=== PATIENT | male | born 1935 | race Caucasian/White ===

== ENCOUNTER 2017-10-20 20:16 | Inpatient (IN) | payer MEDICARE ==
[~2017-10-20] VITALS: Ht 175.3 cm; Wt 66.0 kg
--- NOTE | 2017-10-20 20:00 | NUR ---
RECEIVED PATIENT FROM [facility]IA [employer]. PATIENT IS A/O X 2. VERY PLEASANT WHEN APPROACHED. DENIES ANY PAIN OR DISCOMFORT UPON ARRIVAL. NO RESP. DISTRESS NOTED. VS WNL. ON RA SATING 98%. ORIENTED PATIENT TO ROOM AND CALL LIGHT. PATIENT MADE COMFORTABLE IN BED AND CALL LIGHT IN REACH. ALL NEEDS ATTENDED. BED ALARM ON. ALL NEEDS ATTENDED. WILL CONTINUE TO MONITOR.
--- NOTE | 2017-10-20 21:00 | NUR ---
NOTIFIED DR. CAMPOS THAT PATIENT WAS BROUGHT TO HOSPITAL WITHOUT ANY HOME MEDICATIONS OR HOSPITAL MEDICATIONS NOTED. DISCHARGE FROM [place], [facility]. PATIENT IS UNABLE TO VERBALIZE HOME MEDS. PATIENT IS ALERT AND ABLE TO ANSWER SOME QUESTIONS BUT VERY FORGETFUL.
--- NOTE | 2017-10-20 21:30 | NUR ---
CALLED GAYATHRI AVELAR TO REQUEST MEDICATION INFORMATION BE SENT OVER [facility]. WAITING.
[2017-10-20 21:37] VITALS: BP 107/70
--- NOTE | 2017-10-20 22:00 | NUR ---
RECEIVED HOME MEDICATION LIST/IN-PATIENT MEDS VIA FAX FROM [facility]. RECONCILED IN COMPUTER AND NOTIFIED DR. CAMPOS THAT MEDS ARE READY TO BE RECONCILED. INSERTER OPERATOR AND APPLICATION SECURITY SPECIALIST NOTIFIED. ALL NEEDS ATTENDED.
[2017-10-20] MEDS ORDERED: TEMA7.5C PO (22:23)
[2017-10-20] MEDS ORDERED: HYDR-3326 PO (22:23)
[2017-10-20] MEDS ORDERED: METF500T6 PO (22:23)
[2017-10-20] MEDS ORDERED: FAMO-132 PO (22:23)
[2017-10-20] MEDS ORDERED: ASPI-605 PO (22:23)
[2017-10-20] MEDS ORDERED: ROSU10TA PO (22:23)
[2017-10-20] MEDS ORDERED: DIGO125T5 PO (22:23)
[2017-10-20] MEDS ORDERED: Z GUARD REMEDY PASTE 57 GM TUBE TOP PRN (23:15)
[2017-10-20] MEDS ORDERED: DEXTROSE 50% 50 ML DISP.SYRIN IV PRN (23:30)
[2017-10-20] MEDS ORDERED: VANC750P7 IV (23:49)
--- NOTE | 2017-10-21 00:55 | NUR ---
PATIENT AWAKE IN BED. C/O PAIN IN LEFT LOWER LEG/WHITLEY. PATIENT GIVEN NORCO 1 TAB PO PRN FOR PAIN. WILL CONTINUE TO MONITOR. ALL NEEDS ATTENDED.
[2017-10-21] MEDS: HYDROCODONE/APAP 5-325MG TABLET PO PRN (00:58)
--- NOTE | 2017-10-21 02:53 | NUR ---
UPON PHYSICAL ASSESSMENT, EDEMA NOTED TO BILATERAL GROIN, UPPER PUBIC AREA. DR. CAMPOS NOTIFIED. PATIENT VOIDED IN DIAPER. CHECKED POST-VOID AND RECEIVED 350cc. AWARE. WILL CONTINUE TO MONITOR AND ASSESS. Addendum: 10/21/17 at 0312 by SUSY MODI LVN Amended: Links added.
--- NOTE | 2017-10-21 05:30 | NUR ---
PATIENT AWAKE IN BED. VERY CONFUSED BUT PLEASANT WHEN APPROACHED AND COOPERATIVE WITH CARE. ALERT TO SELF ONLY. EKG TECHNICIAN REPORTED PATIENT VOIDED MINIMAL AMOUNT IN DIAPER.
[2017-10-21 05:48] VITALS: BP 98/69
--- NOTE | 2017-10-21 05:50 | NUR ---
RECHECKED WITH BLADDER SCANNER POST VOID AND RECEIVED 648cc. CALLED OUT TO MILEY JARA MANAGER HOTEL FOR FURTHER ORDERS.
--- NOTE | 2017-10-21 06:05 | NUR ---
RECEIVED ORDER TO STRAIGHT CATH PATIENT.
--- NOTE | 2017-10-21 06:15 | NUR ---
PATIENT STRAIGHT CATH'D AND WAS ONLY ABLE TO RECEIVE 200cc OF URINE. RECHECKED WITH SCANNER AND RECEIVED 440cc OF URINE. COATING MACHINE OPERATOR HELPER NURSE AND DECAL CUTTER NOTIFIED. WILL NOTIFY DR. CAMPOS.
[2017-10-21] MEDS: BLOOD SUGAR DIAGNOSTIC 1 EACH STRIP VI SCH ×4 (06:31→21:00)
--- NOTE | 2017-10-21 07:02 | NUR ---
TELEMARKETER AT BEDSIDE TO INSERT IV. IV NOTED TO LEFT AC #22 GAUGE.
--- NOTE | 2017-10-21 07:15 | NUR ---
CALLED OUT TO DR. CAMPOS TO NOTIFY HIM ABOUT PATIENTS URINE RETENTION. REPORTED TO CHARGE NURSE WELL. AWARE. ENDORSED TO AM SHIFT, ALL NEEDS ATTENDED.
--- NOTE | 2017-10-21 07:49 | NUR ---
PATIENT NOTED RESTING IN BED, AROUSES EASILY, NO COMPLAINTS OF PAIN, NO SIGNS OF DISTRESS, CALL LIGHT IN REACH, BED LOCKED AND IN LOWEST POSITION.
[2017-10-21 08:00] VITALS: BP 113/64
[2017-10-21 08:02] LABS: BASOPHILS # (AUTO) 0.1 K/uL (0.0-8.0); BASOPHILS % (AUTO) 2.3 % (0.0-2.0); EOSINOPHILS # (AUTO) 0.2 K/uL (0.0-0.7); EOSINOPHILS % (AUTO) 5.9 % (0.0-7.0); HEMATOCRIT 36.2 % (36.7-47.1); HEMOGLOBIN 12.1 g/dL (12.5-16.3); LYMPHOCYTES # (AUTO) 0.3 K/uL (20.0-40.0); LYMPHOCYTES % (AUTO) 10.2 % (20.5-51.5); MEAN CORPUSCULAR HEMOGLOBIN 26.8 uug (23.8-33.4); MEAN CORPUSCULAR HGB CONC 34 g/dL (32.5-36.3); MONOCYTES # (AUTO) 0.7 K/uL (2.0-10.0); MONOCYTES % (AUTO) 21.9 % (0.0-11.0); NEUTROPHILS % (AUTO) 59.7 % (38.5-71.5); PLATELET COUNT (AUTO) 166 K/uL (152-348); RED BLOOD CELL COUNT(AUTO) 4.52 MIL/uL (4.06-5.63); WHITE BLOOD COUNT (AUTO) 3.3 K/uL (3.6-10.2)
[2017-10-21 08:50] LABS: ALANINE AMINOTRANSFERASE 17 U/L (16-63); ALKALINE PHOSPHATASE 186 U/L (50-136); ASPARTATE AMINOTRANSFERASE 27 U/L (15-37); BILIRUBIN,TOTAL 1.8 mg/dL (0.2-1.0); CARBON DIOXIDE 26 mmol/L (21-32); CHLORIDE 99 mmol/L (98-107); CHOLESTEROL 81 mg/dL (<200); CREATININE 1.3 mg/dL (0.6-1.3); GLUCOSE 92 mg/dL (74-106); HDL CHOLESTEROL 28 mg/dL (40-60); MAGNESIUM 1.8 mg/dL (1.8-2.4); POTASSIUM 4.2 mmol/L (3.5-5.1); TOTAL PROTEIN, SERUM 6.6 g/dL (6.4-8.2); TRIGLYCERIDES 35 MG/DL (30-150); UREA NITROGEN, BLOOD 36 mg/dL (7-18)
[2017-10-21] MEDS: ASPIRIN EC 81 MG TABLET.DR PO SCH (08:50)
[2017-10-21] MEDS: FAMOTIDINE 20 MG TABLET PO SCH (08:50)
[2017-10-21 09:22] LABS: THYROID STIMULATING HORMONE 2.701 mIU/mL (0.358-3.740)
[2017-10-21 09:24] LABS: DIGOXIN 1.1 ng/mL (0.9-2.0)
[2017-10-21 09:29] LABS: EOSINOPHILS % (MANUAL) 5 % (0-8); LYMPHOCYTES % (MANUAL) 8 % (20-40); MONOCYTES % (MANUAL) 17 % (2-10); NEUTROPHILS % (MANUAL) 70 % (42-75)
[2017-10-21] MEDS: METFORMIN HCL 500 MG TABLET PO SCH ×2 (09:54→17:27)
[2017-10-21] MEDS: VANCOMYCIN IV 1 G in PREMIXED 0 EACH IV SCH (12:11)
[2017-10-21] MEDS: INSULIN REGULAR, HUMAN 300 UNIT/3 ML VIAL SQ PRN (12:19)
[2017-10-21] MEDS: DIGOXIN 125 MCG TABLET PO SCH (12:20)
--- NOTE | 2017-10-21 12:22 | NUR ---
Clinical Pharmacy Note: Vancomycin Dosing per Pharmacy Subjective: Vancomycin IV to start on this 82 yo male patient for cellulitis (continue from home med). Objective: BUN 36/Scr 1.3 WBC 3.3 Temperature 97.6 Vanco random level: 12 with am labs ht 175 cm wt 66 kg Assessment/Plan: Will start vancomycin 1000mg IVPB Q25hr for predicted vanco trough level of 15 mcg/ml at steady state. 1st dose is due today at 1200. Will draw a vancomycin trough level prior to the 4th dose of vancomycin (not ordered yet). Will monitor renal function and adjust vancomycin dose, if needed, should renal function change significantly. Will follow daily.
--- NOTE | 2017-10-21 13:13 | NUR ---
WOUND CARE CONSULT: PT PRESENTS WITH SACRAL SCARRING AND LEFT LOWER LEG HEALING WOUND, PRESENT ON ADMISSION. RECOMMENDATIONS MADE FOR WOUND CARE AND SKIN PROTECTION. DISCUSSED WITH NURSING STAFF. WILL SEE PRN. VARGHESE IN AGREEMENT WITH PLAN OF CARE. Addendum: 10/21/17 at 1314 by ELAINE GIMENEZ RN Amended: Links added.
[2017-10-21 16:00] VITALS: BP 96/59
[2017-10-21 20:26] VITALS: BP 100/69
[2017-10-21] MEDS ORDERED: Medication Not On Formulary EA (Rosuvastatin Calcium (Crestor) 1 TAB) PO SCH (21:00)
[2017-10-21] MEDS: ATORVASTATIN 20 MG TABLET PO SCH (22:49)
[2017-10-21] MEDS: DOCUSATE SODIUM 100 MG CAPSULE PO SCH (22:49)
[2017-10-22 05:20] VITALS: BP 110/74
[2017-10-22] MEDS: BLOOD SUGAR DIAGNOSTIC 1 EACH STRIP VI SCH ×4 (07:27→21:48)
[2017-10-22 08:00] VITALS: BP 101/67
[2017-10-22] MEDS: METFORMIN HCL 500 MG TABLET PO SCH ×2 (08:30→17:05)
[2017-10-22] MEDS: ASPIRIN EC 81 MG TABLET.DR PO SCH (08:30)
[2017-10-22] MEDS: FAMOTIDINE 20 MG TABLET PO SCH (08:30)
[2017-10-22] MEDS: HYDROCODONE/APAP 5-325MG TABLET PO PRN (08:30)
--- NOTE | 2017-10-22 09:36 | NUR ---
pt seen on rounding. pt continues to be alert 2 -3. pt taken meds whole. pt has cxr concerning of pna. applied 1.5 l of oxygen and satting within normal limits. wound site seen. no signs of bleeding. will apply new dressing per order. will continue to monitor. pt continues to be drowsy and lethargic slow to wake.
[2017-10-22] MEDS: INSULIN REGULAR, HUMAN 300 UNIT/3 ML VIAL SQ PRN ×2 (12:51→17:05)
[2017-10-22] MEDS: DIGOXIN 125 MCG TABLET PO SCH (12:56)
[2017-10-22] MEDS: VANCOMYCIN IV 1 G in PREMIXED 0 EACH IV SCH (12:57)
[2017-10-22 16:00] VITALS: BP 94/65
--- NOTE | 2017-10-22 16:15 | NUR ---
Clinical Pharmacy Note: Vancomycin Dosing per Pharmacy Subjective: Vancomycin IV to continue on this 82 yo male patient for cellulitis (continue from home med). Objective: BUN 36/Scr 1.3(10/21) WBC 3.3 (10/21) Temperature 97.7 ht 175 cm wt 66 kg Assessment/Plan: Will continue vancomycin 1000mg IVPB Q25hr for predicted vanco trough level of 15 mcg/ml at steady state. 2nd dose given today at 1300. Will draw a vancomycin trough level prior to the 4th dose of vancomycin (not ordered yet). Will monitor renal function and adjust vancomycin dose, if needed, should renal function change significantly. Will follow daily.
--- NOTE | 2017-10-22 16:24 | NUR ---
INTERDISCIPLINARY TEAM CONFERENCE
--- NOTE | 2017-10-22 16:35 | NUR ---
INTERDISCIPLINARY TEAM CONFERENCE
[2017-10-22] MEDS: PIPERACILLIN/TAZOBACTAM/D5W 50 ML IV SCH ×2 (16:41→21:42)
--- NOTE | 2017-10-22 19:03 | NUR ---
pt stable throughout the day. pt tolerated room air and stable. pt showed signs of pneumonia on cxr. new antibiotic given. pt swallowed pills whole. will endorse to material handler 2nd shift nurse.
[2017-10-22] MEDS ORDERED: LACTULOSE 20 G/30 ML LIQUID UDC PO PRN (19:15)
[2017-10-22 19:30] VITALS: BP 90/69
[2017-10-22] MEDS: DOCUSATE SODIUM 100 MG CAPSULE PO SCH (21:42)
[2017-10-22] MEDS: ATORVASTATIN 20 MG TABLET PO SCH (21:42)
[2017-10-22] MEDS: FERROUS GLUCONATE 324 MG TABLET PO SCH (21:50)
[2017-10-22] MEDS ORDERED: PIPERACILLIN SODIUM/TAZOBACTAM 4.5 G in IV DEXTROSE 5% 50 ML IV SCH (22:00)
[2017-10-23] MEDS: PIPERACILLIN/TAZOBACTAM/D5W 50 ML IV SCH ×4 (03:00→20:50)
[2017-10-23] MEDS: BLOOD SUGAR DIAGNOSTIC 1 EACH STRIP VI SCH ×4 (06:40→21:35)
[2017-10-23 07:30] LABS: BASOPHILS # (AUTO) 0.1 K/uL (0.0-8.0); BASOPHILS % (AUTO) 2.4 % (0.0-2.0); EOSINOPHILS # (AUTO) 0.2 K/uL (0.0-0.7); EOSINOPHILS % (AUTO) 6.8 % (0.0-7.0); HEMATOCRIT 36.4 % (36.7-47.1); HEMOGLOBIN 12.1 g/dL (12.5-16.3); LYMPHOCYTES # (AUTO) 0.3 K/uL (20.0-40.0); LYMPHOCYTES % (AUTO) 8.8 % (20.5-51.5); MEAN CORPUSCULAR HEMOGLOBIN 26.6 uug (23.8-33.4); MEAN CORPUSCULAR HGB CONC 33 g/dL (32.5-36.3); MEAN CORPUSCULAR VOLUME 80.1 fL (73.0-96.2); MONOCYTES # (AUTO) 0.8 K/uL (2.0-10.0); NEUTROPHILS # (AUTO) 2.2 K/uL (1.8-8.9); PLATELET COUNT (AUTO) 178 K/uL (152-348); RED BLOOD CELL COUNT(AUTO) 4.54 MIL/uL (4.06-5.63); WHITE BLOOD COUNT (AUTO) 3.6 K/uL (3.6-10.2)
[2017-10-23 08:30] VITALS: BP 101/77
[2017-10-23] MEDS: METFORMIN HCL 500 MG TABLET PO SCH ×2 (08:34→17:13)
[2017-10-23] MEDS: ASPIRIN EC 81 MG TABLET.DR PO SCH (08:35)
[2017-10-23] MEDS: FERROUS GLUCONATE 324 MG TABLET PO SCH ×2 (08:35→20:51)
[2017-10-23] MEDS: FAMOTIDINE 20 MG TABLET PO SCH (08:35)
[2017-10-23 09:32] LABS: NEUTROPHILS % (MANUAL) 0 % (42-75)
[2017-10-23 12:25] LABS: *OCCULT BLOOD STOOL NEGATIVE (NEGATIVE)
[2017-10-23] MEDS: DIGOXIN 125 MCG TABLET PO SCH (12:58)
[2017-10-23] MEDS: INSULIN REGULAR, HUMAN 300 UNIT/3 ML VIAL SQ PRN (13:01)
[2017-10-23] MEDS: VANCOMYCIN IV 1 G in PREMIXED 0 EACH IV SCH (13:01)
--- NOTE | 2017-10-23 13:51 | NUR ---
Clinical Pharmacy Note: Vancomycin Dosing per Pharmacy Subjective: Vancomycin IV to continue on this 82 yo male patient for cellulitis (continue from home med). Objective: BUN 36/Scr 1.3(10/21) WBC 3.6 Temperature 97.9 ht 175 cm wt 66 kg Assessment/Plan: Will continue vancomycin 1000mg IVPB Q25hr for predicted vanco trough level of 15 mcg/ml at steady state. 3rd dose given today at 1301. Will draw a vancomycin trough level prior to the 4th dose of vancomycin (ordered for tomorrow at 1430). Will monitor renal function and adjust vancomycin dose, if needed, should renal function change significantly. Will follow daily.
[2017-10-23] MEDS: HYDROCODONE/APAP 5-325MG TABLET PO PRN (14:14)
[2017-10-23 16:00] VITALS: BP 98/62
--- NOTE | 2017-10-23 18:57 | NUR ---
Patient alert and oriented. on PT and OT well tolerated. stable vital sign and recorded. call light within reached.
--- NOTE | 2017-10-23 19:00 | NUR ---
Spoke to [place] from nuclear medicine and said that they don't do bone scan during weekends and that they will do it on Wednesday. Dr. Dave made aware and said OK. Patient's daughter Ale who is at bedside aware.
--- NOTE | 2017-10-23 19:56 | NUR ---
Notified Dr. Briggs that radiology will do her order on Wednesday since radiology does not do it on weekends. stated that it was okay to be done on Wednesday. Will endorse properly.
[2017-10-23 20:17] VITALS: BP 125/59
[2017-10-23] MEDS: DOCUSATE SODIUM 100 MG CAPSULE PO SCH (20:50)
[2017-10-23] MEDS: ATORVASTATIN 20 MG TABLET PO SCH (20:50)
[2017-10-23] MEDS: LACTOBACILLUS RHAMNOSUS GG 1 EACH CAPSULE PO SCH (20:50)
[2017-10-24] MEDS: PIPERACILLIN/TAZOBACTAM/D5W 50 ML IV SCH ×4 (03:29→21:39)
--- NOTE | 2017-10-24 06:44 | NUR ---
PT SLEPT WELL OVERNIGHT, WOKE UP LAST NIGHT GOT CONFUSED TRYING TO GET OUT OF BED WITHOUT CALLING.INCONTINENT OF BLADDER AND BOWEL, KEPT CLEAN AND DRY.REMAINS IN BED, LLE DRESSING INTACT,CONTINUE WITH ANTIBIOTICS.VSS,AFEBRILE, BED ALARM ACTIVE AT ALL TIMES.
[2017-10-24 08:09] VITALS: BP 109/62
[2017-10-24] MEDS: BLOOD SUGAR DIAGNOSTIC 1 EACH STRIP VI SCH ×4 (08:58→21:28)
[2017-10-24] MEDS: FERROUS GLUCONATE 324 MG TABLET PO SCH ×2 (08:59→21:08)
[2017-10-24] MEDS: METFORMIN HCL 500 MG TABLET PO SCH ×2 (08:59→18:11)
[2017-10-24] MEDS: LACTOBACILLUS RHAMNOSUS GG 1 EACH CAPSULE PO SCH ×2 (08:59→21:08)
[2017-10-24] MEDS: FAMOTIDINE 20 MG TABLET PO SCH (08:59)
[2017-10-24] MEDS: ASPIRIN EC 81 MG TABLET.DR PO SCH (08:59)
--- NOTE | 2017-10-24 10:31 | NUR ---
Patient noted resting in bed with eyes closed, no complaints of pain, no signs of distress, call light in reach, bed locked and in lowest position
[2017-10-24] MEDS: DIGOXIN 125 MCG TABLET PO SCH (12:12)
--- NOTE | 2017-10-24 15:41 | NUR ---
Clinical Pharmacy Note: Vancomycin Dosing per Pharmacy Subjective: Vancomycin IV to continue on this 82 yo male patient for cellulitis (continue from home med). Objective: BUN 36/Scr 1.3(10/21) WBC 3.6 Temperature 97.9 Vanco trough level: 21.7 ht 175 cm wt 66 kg Assessment/Plan: Will dc vancomycin 1000mg IVPB Q25hr for now (last dose of 1000mg was given on 10/23 at 1300). No further dose is due today. Plan to check vanco random level in am (with am labs) for further dosing. Will follow daily.
[2017-10-24 16:05] VITALS: BP 103/64
[2017-10-24 19:49] VITALS: BP 103/57
--- NOTE | 2017-10-24 20:00 | NUR ---
The patient received on bed awake and alert x2. No acute distress, no SOB. Has IV line on his left forearm gauge 22. Call light and personal belonging within reach. Bed alarm and bed brakes on for safety precaution. Continue to monitor.
[2017-10-24] MEDS: DOCUSATE SODIUM 100 MG CAPSULE PO SCH ×2 (21:00→21:08)
[2017-10-24] MEDS: ATORVASTATIN 20 MG TABLET PO SCH (21:08)
--- NOTE | 2017-10-24 21:30 | NUR ---
The patient had loose stool and diarrhea at 2100. Colace was hold. continue to monitor.
[2017-10-25] MEDS: PIPERACILLIN/TAZOBACTAM/D5W 50 ML IV SCH ×4 (02:51→21:08)
[2017-10-25 05:00] VITALS: BP 112/64
--- NOTE | 2017-10-25 06:45 | NUR ---
The patient is awake and alert x2. confused. No acute distress, no SOB. On room air with O2 sat 97%. Has IV line on his left forearm gauge 22. Meds and IV antibiotic given as ordered. Had three BM in form of diarrhea Colace was held,Call light and personal belonging within reach. Bed alarm and bed brakes on for safety precaution. Have nuclear bone scan today morning. Will endorse day shift nurses accordingly.
[2017-10-25] MEDS: BLOOD SUGAR DIAGNOSTIC 1 EACH STRIP VI SCH ×4 (06:58→21:32)
[2017-10-25 07:59] LABS: BASOPHILS # (AUTO) 0.1 K/uL (0.0-8.0); BASOPHILS % (AUTO) 2.7 % (0.0-2.0); EOSINOPHILS # (AUTO) 0.2 K/uL (0.0-0.7); EOSINOPHILS % (AUTO) 5.9 % (0.0-7.0); HEMOGLOBIN 12.3 g/dL (12.5-16.3); LYMPHOCYTES # (AUTO) 0.4 K/uL (20.0-40.0); LYMPHOCYTES % (AUTO) 10.2 % (20.5-51.5); MEAN CORPUSCULAR HEMOGLOBIN 26.7 uug (23.8-33.4); MEAN CORPUSCULAR HGB CONC 33 g/dL (32.5-36.3); MEAN CORPUSCULAR VOLUME 80.3 fL (73.0-96.2); MONOCYTES # (AUTO) 0.8 K/uL (2.0-10.0); MONOCYTES % (AUTO) 22.8 % (0.0-11.0); NEUTROPHILS % (AUTO) 58.4 % (38.5-71.5); PLATELET COUNT (AUTO) 160 K/uL (152-348); RED BLOOD CELL COUNT(AUTO) 4.61 MIL/uL (4.06-5.63); WHITE BLOOD COUNT (AUTO) 3.4 K/uL (3.6-10.2)
[2017-10-25] MEDS: FERROUS GLUCONATE 324 MG TABLET PO SCH ×2 (08:14→21:08)
[2017-10-25] MEDS: LACTOBACILLUS RHAMNOSUS GG 1 EACH CAPSULE PO SCH ×2 (08:14→21:08)
[2017-10-25] MEDS: FAMOTIDINE 20 MG TABLET PO SCH (08:14)
[2017-10-25] MEDS: ASPIRIN EC 81 MG TABLET.DR PO SCH (08:14)
[2017-10-25 08:26] LABS: ALANINE AMINOTRANSFERASE 15 U/L (16-63); ALKALINE PHOSPHATASE 191 U/L (50-136); ASPARTATE AMINOTRANSFERASE 19 U/L (15-37); BILIRUBIN,TOTAL 1.8 mg/dL (0.2-1.0); CARBON DIOXIDE 25 mmol/L (21-32); CHLORIDE 100 mmol/L (98-107); CREATININE 1.6 mg/dL (0.6-1.3); GLUCOSE 99 mg/dL (74-106); PHOSPHOROUS 3.1 mg/dL (2.5-4.9); POTASSIUM 3.7 mmol/L (3.5-5.1); UREA NITROGEN, BLOOD 32 mg/dL (7-18); VANCOMYCIN,RANDOM 20.5 ug/mL (18.0-26.0)
[2017-10-25 08:39] VITALS: BP 114/75
[2017-10-25 10:32] LABS: BASOPHILS % (MANUAL) 1 % (0-2); EOSINOPHILS % (MANUAL) 4 % (0-8); LYMPHOCYTES % (MANUAL) 15 % (20-40); MONOCYTES % (MANUAL) 20 % (2-10); NEUTROPHILS % (MANUAL) 60 % (42-75)
--- NOTE | 2017-10-25 12:39 | NUR ---
Clinical Pharmacy Note: Vancomycin Dosing per Pharmacy Subjective: Vancomycin IV to continue on this 82 yo male patient for cellulitis (continue from home med). Objective: BUN 32/Scr 1.6 WBC 3.4 Temperature 97.6 Vanco random 20.5 today at 0600 ht 175 cm wt 66 kg Assessment/Plan: Since renal function is unstable, will continue to dose by random level. Will give Vancomycin 1gram tonight at 2200(after Zosyn dose). Will decide next random level after checking tomorrow's lab. Will monitor daily.
[2017-10-25] MEDS: INSULIN REGULAR, HUMAN 300 UNIT/3 ML VIAL SQ PRN ×2 (12:58→17:12)
[2017-10-25] MEDS: DIGOXIN 125 MCG TABLET PO SCH (13:35)
--- NOTE | 2017-10-25 15:41 | NUR ---
pt seen on rounding.vitals stable. pt had bone scan done. results came negative. no reaction from dye seen. family requests to have prostate biopsy done. informed md. no response will continue to monitor.
[2017-10-25 19:30] VITALS: BP 100/51
--- NOTE | 2017-10-25 20:21 | NUR ---
2020: SBAR handoff received; pt laying; disoriented to place, time, and situation; forgetfull. PERRLA; and facial symmetry; pt able to follow simple commands. peripheral pulse present and wnl; sensation intact; cap refill immediate; bp low 98/55 and 100/51 hr 70s; heart device noted to mid chest; pt reports device is not "connected." iv to lac leaking; rh#22 peripheral iv started; intact and patent. respiration regular on RA with sp02 at 97% no s/s resp distress; lsd to elba. bases.; pt with intermittent moist cough; bs present [id number]; bm today; inc of urine; pt received with diaper. skin care provided and diaper changed. dressing to lle dry and intact otherwise no further breakdown so far this shift.
[2017-10-25] MEDS: DOCUSATE SODIUM 100 MG CAPSULE PO SCH (21:08)
[2017-10-25] MEDS: ATORVASTATIN 20 MG TABLET PO SCH (21:08)
[2017-10-25] MEDS ORDERED: VANCOMYCIN IV 1 G in PREMIXED 0 EACH IV ONE (22:00)
[2017-10-26] MEDS: PIPERACILLIN/TAZOBACTAM/D5W 50 ML IV SCH ×4 (03:14→21:10)
[2017-10-26] MEDS: BLOOD SUGAR DIAGNOSTIC 1 EACH STRIP VI SCH ×4 (06:30→21:11)
[2017-10-26] MEDS: ASPIRIN EC 81 MG TABLET.DR PO SCH (08:34)
[2017-10-26] MEDS: FAMOTIDINE 20 MG TABLET PO SCH (08:34)
[2017-10-26] MEDS: FERROUS GLUCONATE 324 MG TABLET PO SCH ×2 (08:34→21:10)
[2017-10-26] MEDS: LACTOBACILLUS RHAMNOSUS GG 1 EACH CAPSULE PO SCH ×2 (08:34→21:10)
[2017-10-26 08:53] VITALS: BP 110/71
--- NOTE | 2017-10-26 09:47 | NUR ---
Received patient awake, alert , verbally responsive and confused. not in distress. no complaint of pain/discomfort noted. Continue ABT zosyn for cellulitis. no adverse reaction noted. will continue monitor
[2017-10-26] MEDS: DIGOXIN 125 MCG TABLET PO SCH (14:20)
--- NOTE | 2017-10-26 15:57 | NUR ---
Clinical Pharmacy Note: Vancomycin Dosing per Pharmacy Subjective: Vancomycin IV to continue on this 82 yo male patient for cellulitis (continue from home med). Objective: BUN 32/Scr 1.6 (10/25) WBC 3.4(10/25) Temperature 97.4 ht 175 cm wt 66 kg Assessment/Plan: Since renal function is unstable, will continue to dose by random level. Last dose given last night at 2200(1 gram). Will order random level in am for further dosing.
[2017-10-26 20:28] VITALS: BP 109/67
[2017-10-26] MEDS: ATORVASTATIN 20 MG TABLET PO SCH (21:10)
[2017-10-26] MEDS: DOCUSATE SODIUM 100 MG CAPSULE PO SCH (21:10)
[2017-10-27] MEDS: PIPERACILLIN/TAZOBACTAM/D5W 50 ML IV SCH ×4 (02:46→21:04)
[2017-10-27 05:17] VITALS: BP 107/69
[2017-10-27] MEDS: BLOOD SUGAR DIAGNOSTIC 1 EACH STRIP VI SCH ×4 (06:30→20:43)
[2017-10-27 08:04] LABS: CARBON DIOXIDE 26 mmol/L (21-32); CHLORIDE 101 mmol/L (98-107); CREATININE 1.5 mg/dL (0.6-1.3); GLUCOSE 102 mg/dL (74-106); POTASSIUM 3.2 mmol/L (3.5-5.1); UREA NITROGEN, BLOOD 25 mg/dL (7-18); VANCOMYCIN,RANDOM 17.6 ug/mL (18.0-26.0)
[2017-10-27 08:18] VITALS: BP 110/48
[2017-10-27] MEDS: FERROUS GLUCONATE 324 MG TABLET PO SCH ×2 (08:19→20:50)
[2017-10-27] MEDS: LACTOBACILLUS RHAMNOSUS GG 1 EACH CAPSULE PO SCH ×2 (08:19→20:49)
[2017-10-27] MEDS: FAMOTIDINE 20 MG TABLET PO SCH (08:19)
[2017-10-27] MEDS: ASPIRIN EC 81 MG TABLET.DR PO SCH (08:19)
--- NOTE | 2017-10-27 08:55 | NUR ---
Received patient awake, alert, oriented with periods of confusion. not in distress. Continue on IV Zosyn for cellulitis. no adverse reaction noted. will continue monitor
[2017-10-27] MEDS ORDERED: VANCOMYCIN IV 1 G in PREMIXED 0 EACH IV ONE (09:00)
[2017-10-27] MEDS: BENZOCAINE/MENTH/CETYLPYRD LOZENGE MM PRN (13:34)
[2017-10-27] MEDS: DIGOXIN 125 MCG TABLET PO SCH (13:37)
[2017-10-27] MEDS ORDERED: POTASSIUM CHLORIDE 10 MEQ TAB.PRT.SR PO ONE (14:15)
--- NOTE | 2017-10-27 15:04 | NUR ---
Clinical Pharmacy Note: Vancomycin Dosing per Pharmacy Subjective: Vancomycin IV to continue on this 82 yo male patient for cellulitis (continue from home med). Objective: BUN 25/Scr 1.5 WBC 3.4(10/25) Temperature 98 Vancomycin random today at 0600 was 17.6 ht 175 cm wt 66 kg Assessment/Plan: Since renal function is unstable, will continue to dose by random level. Since Vancomycin random is under 20, Vancomycin 1gram x1 was given today at 0900. Random is on order for further dosing.
--- NOTE | 2017-10-27 18:48 | NUR ---
Patient chest xray done, result impression cardiomegaly with congestive change, pleural effusion and AGRICULTURAL CONSULTANT for MD jeff aware , furosemide via IV push 4ml given. not in distress. will continue monitor
--- NOTE | 2017-10-27 20:00 | NUR ---
The patient received on bed awake and alert x2. No acute distress, no SOB. Has IV line on his right wrist gauge 22. Call light and personal belonging within reach. Bed alarm and bed brakes on, side rails up x2 for safety precaution. Continue to monitor.
[2017-10-27] MEDS: ATORVASTATIN 20 MG TABLET PO SCH (20:49)
[2017-10-27] MEDS: DOCUSATE SODIUM 100 MG CAPSULE PO SCH (20:49)
[2017-10-27] MEDS: INSULIN REGULAR, HUMAN 300 UNITS/3 ML VIAL SQ PRN (20:51)
[2017-10-28] MEDS: PIPERACILLIN/TAZOBACTAM/D5W 50 ML IV SCH ×4 (03:07→20:35)
[2017-10-28 05:37] VITALS: BP 108/66
--- NOTE | 2017-10-28 05:52 | NUR ---
End of the shift note, The patient is awake and alert x2. confused. No acute distress, no SOB. On room air with O2 sat 93%. Has IV line on his right forearm gauge 22. Meds and IV antibiotic given as ordered. Blood sugar was checked 140, insulin was injected based on sliding scale. Had relatively good sleep throughout the night. Call light and personal belonging within reach. Bed alarm and bed brakes on for safety precaution. Will endorse day shift nurses accordingly.
[2017-10-28] MEDS: BLOOD SUGAR DIAGNOSTIC 1 EACH STRIP VI SCH ×4 (07:29→20:35)
--- NOTE | 2017-10-28 07:30 | NUR ---
Patient blood sugar was 66 at 0730. Apple juice with added sugar was given. Will endorse day shift nurse to continue monitoring.
[2017-10-28 08:00] VITALS: BP 104/56
[2017-10-28] MEDS: LACTOBACILLUS RHAMNOSUS GG 1 EACH CAPSULE PO SCH ×2 (09:36→20:29)
[2017-10-28] MEDS: FAMOTIDINE 20 MG TABLET PO SCH (09:36)
[2017-10-28] MEDS: FERROUS GLUCONATE 324 MG TABLET PO SCH ×2 (09:36→20:29)
[2017-10-28] MEDS: ASPIRIN EC 81 MG TABLET.DR PO SCH (09:36)
--- NOTE | 2017-10-28 11:45 | NUR ---
Up with occupational therapy, tolerating therapy well.
[2017-10-28] MEDS: DIGOXIN 125 MCG TABLET PO SCH (12:10)
[2017-10-28] MEDS: INSULIN REGULAR, HUMAN 300 UNIT/3 ML VIAL SQ PRN ×2 (12:11→17:06)
--- NOTE | 2017-10-28 13:47 | NUR ---
Clinical Pharmacy Note: Vancomycin Dosing per Pharmacy Subjective: Vancomycin IV to continue on this 82 yo male patient for cellulitis (continue from home med). Objective: BUN 25/Scr 1.5 (10/27) WBC 3.4(10/25) Temperature 97.5 Vancomycin random today at 0600 was 20.3 ht 175 cm wt 66 kg Assessment/Plan: Since renal function is unstable, will continue to dose by random level. Last vanco 1gram x1 was given 10/27 at 0900. Based on today's level, no dose for today. Next random ordered for tomorrow at 0600. Will follow level and re-dose as needed. Will follow
--- NOTE | 2017-10-28 14:00 | NUR ---
Heart Rate 55. Held Lanoxin. Patient asymptomatic, no SOB or chest pains.
[2017-10-28 16:01] VITALS: BP 109/63
[2017-10-28 19:30] VITALS: BP 98/60
--- NOTE | 2017-10-28 20:00 | NUR ---
The patient received on bed awake and alert x2. No acute distress, no SOB. Has IV line on his right wrist gauge 22. No sign of inflammation. Call light and personal belonging within reach. Bed alarm and bed brakes on, side rails up x2 for safety precaution. Continue to monitor.
[2017-10-28] MEDS: ATORVASTATIN 20 MG TABLET PO SCH (20:29)
[2017-10-28] MEDS: DOCUSATE SODIUM 100 MG CAPSULE PO SCH (20:30)
[2017-10-29] MEDS: PIPERACILLIN/TAZOBACTAM/D5W 50 ML IV SCH ×3 (02:45→15:17)
[2017-10-29] MEDS: BLOOD SUGAR DIAGNOSTIC 1 EACH STRIP VI SCH ×4 (06:36→20:50)
--- NOTE | 2017-10-29 06:51 | NUR ---
End of the shift note, The patient is awake and alert x2. confused. No acute distress, no SOB. On room air with O2 sat 98%. Has IV line on his right forearm gauge 22. Meds and IV antibiotic given as ordered. Blood sugar was checked 96, no action was taken. Had relatively good sleep throughout the night. Call light and personal belonging within reach. Bed alarm and bed brakes on for safety precaution. Will endorse day shift nurses accordingly.
[2017-10-29 07:03] VITALS: BP 121/68
[2017-10-29 07:10] LABS: BASOPHILS # (AUTO) 0.1 K/uL (0.0-8.0); BASOPHILS % (AUTO) 1.1 % (0.0-2.0); EOSINOPHILS # (AUTO) 0.3 K/uL (0.0-0.7); EOSINOPHILS % (AUTO) 6.1 % (0.0-7.0); HEMATOCRIT 37.7 % (36.7-47.1); HEMOGLOBIN 12.4 g/dL (12.5-16.3); LYMPHOCYTES # (AUTO) 0.4 K/uL (20.0-40.0); MEAN CORPUSCULAR HEMOGLOBIN 26.7 uug (23.8-33.4); MEAN CORPUSCULAR HGB CONC 33 g/dL (32.5-36.3); MEAN CORPUSCULAR VOLUME 81.3 fL (73.0-96.2); MONOCYTES # (AUTO) 0.8 K/uL (2.0-10.0); NEUTROPHILS # (AUTO) 3.3 K/uL (1.8-8.9); NEUTROPHILS % (AUTO) 67.8 % (38.5-71.5); PLATELET COUNT (AUTO) 128 K/uL (152-348); RED BLOOD CELL COUNT(AUTO) 4.64 MIL/uL (4.06-5.63); WHITE BLOOD COUNT (AUTO) 4.8 K/uL (3.6-10.2)
[2017-10-29 07:30] LABS: CARBON DIOXIDE 26 mmol/L (21-32); CHLORIDE 101 mmol/L (98-107); CREATININE 1.5 mg/dL (0.6-1.3); GLUCOSE 87 mg/dL (74-106); POTASSIUM 3.1 mmol/L (3.5-5.1); UREA NITROGEN, BLOOD 21 mg/dL (7-18)
[2017-10-29 07:39] LABS: EOSINOPHILS % (MANUAL) 5 % (0-8); LYMPHOCYTES % (MANUAL) 12 % (20-40); MONOCYTES % (MANUAL) 15 % (2-10); NEUTROPHILS % (MANUAL) 68 % (42-75)
[2017-10-29 08:00] VITALS: BP 92/56
--- NOTE | 2017-10-29 08:00 | NUR ---
RECEIVED PATIENT AWAKE, ALERT X1-2. PATIENT MAY HAVE PERIODS OF CONFUSION. NOT IN APPARENT DISTRESS. NOT IN ANY PAIN. ENCOURAGED TO CALL FOR NEEDS. WILL CONTINUE TO MONITOR. G22 OVER RIGHT ARM INTACT.
[2017-10-29] MEDS ORDERED: VANCOMYCIN IV 1 G in PREMIXED 0 EACH IV ONE (09:00)
[2017-10-29] MEDS: LACTOBACILLUS RHAMNOSUS GG 1 EACH CAPSULE PO SCH ×2 (09:24→20:49)
[2017-10-29] MEDS: ASPIRIN EC 81 MG TABLET.DR PO SCH (09:24)
[2017-10-29] MEDS: FAMOTIDINE 20 MG TABLET PO SCH (09:24)
[2017-10-29] MEDS: FERROUS GLUCONATE 324 MG TABLET PO SCH ×2 (09:24→20:49)
--- NOTE | 2017-10-29 10:00 | NUR ---
IV LINE INFILTRATED. NEW LINE STARTED OVER RIGHT UPPER ARM G20
[2017-10-29] MEDS: INSULIN REGULAR, HUMAN 300 UNIT/3 ML VIAL SQ PRN (11:49)
[2017-10-29] MEDS: DIGOXIN 125 MCG TABLET PO SCH (12:03)
--- NOTE | 2017-10-29 13:00 | NUR ---
[facility]- 54. PATIENT ASYMPTOMATIC. DR. PETERS AWARE, DIGOXIN LEVELS ORDERED.
--- NOTE | 2017-10-29 13:00 | NUR ---
WITH JOAQUIN ASTUDILLO AT BEDSIDE, REMINDED OF ADVANCED DIRECTIVES/POWER OF MONUMENT STONECUTTER FOR PATIENT. PATIENT HAD NO CHEST PAINS OR SOB NOTED. DRESSING ONLINE MARKETING ANALYST LEFT LOWER EXTREMITY, HEALING WELL, NO DISCHARGED NOTED, NON-FOUL SMELLING.
--- NOTE | 2017-10-29 13:51 | NUR ---
INTERDISCIPLINARY TEAM CONFERENCE
[2017-10-29] MEDS ORDERED: POTASSIUM CHLORIDE 10 MEQ TAB.PRT.SR PO ONE (14:15)
[2017-10-29 16:14] VITALS: BP 118/76
[2017-10-29] MEDS: INSULIN REGULAR, HUMAN 300 UNITS/3 ML VIAL SQ PRN (17:23)
[2017-10-29 20:00] VITALS: BP 124/83
--- NOTE | 2017-10-29 20:30 | NUR ---
Received pt resting in bed and watching tv. AAO x2. No acute distress noted. No c/o pain or discomfort. Accucheck of 80. VSS. Diaper changed, dark loose BM, no foul smell noted. Safety measures maintained. Call light and personal belongings within reach. Will continue to monitor.
[2017-10-29] MEDS: ATORVASTATIN 20 MG TABLET PO SCH (20:49)
[2017-10-29] MEDS: DOCUSATE SODIUM 100 MG CAPSULE PO SCH (20:49)
[2017-10-29] MEDS: TEMAZEPAM 7.5 MG CAPSULE PO PRN (23:18)
[2017-10-30] MEDS: BLOOD SUGAR DIAGNOSTIC 1 EACH STRIP VI SCH ×4 (06:40→20:16)
[2017-10-30 08:27] VITALS: BP 123/64
[2017-10-30] MEDS: FERROUS GLUCONATE 324 MG TABLET PO SCH ×2 (08:30→20:15)
[2017-10-30] MEDS: LACTOBACILLUS RHAMNOSUS GG 1 EACH CAPSULE PO SCH ×2 (08:30→20:15)
[2017-10-30] MEDS: ASPIRIN EC 81 MG TABLET.DR PO SCH (08:31)
[2017-10-30] MEDS: FAMOTIDINE 20 MG TABLET PO SCH (08:31)
--- NOTE | 2017-10-30 10:03 | NUR ---
Received patient sleeping in bed. Alert and verbally responsive with periods of confusion. consumed 25% of breakfast despite of encouragement. not in distress. no complaint of pain/discomfort. will continue monitor
[2017-10-30 16:41] VITALS: BP 111/48
[2017-10-30] MEDS: INSULIN REGULAR, HUMAN 300 UNIT/3 ML VIAL SQ PRN (16:51)
[2017-10-30 19:45] VITALS: BP 115/70
[2017-10-30] MEDS: DOCUSATE SODIUM 100 MG CAPSULE PO SCH (20:16)
[2017-10-30] MEDS: ATORVASTATIN 20 MG TABLET PO SCH (20:16)
[2017-10-30] MEDS: INSULIN REGULAR, HUMAN 300 UNITS/3 ML VIAL SQ PRN (20:19)
--- NOTE | 2017-10-30 21:38 | NUR ---
Patient sleeping upon arrival to room , pt easily aroused by name , A & O x 2 , pt is confused , Accucheck done and pt has blood sugar of 164 , 3 units of Humulin R given per sliding scale , insulin given subcutaneous in rt lower abdomen , routine meds given at 2100 .
[2017-10-31] MEDS: TEMAZEPAM 7.5 MG CAPSULE PO PRN (00:38)
[2017-10-31] MEDS: BLOOD SUGAR DIAGNOSTIC 1 EACH STRIP VI SCH ×4 (06:49→21:36)
--- NOTE | 2017-10-31 07:04 | NUR ---
Patient's blood sugar was 67 at 0630 , pt reports feeling sleepy , was given orange juice , and will continue to monitor
--- NOTE | 2017-10-31 08:30 | NUR ---
Patient awake, alert, in bed, verbally responsive, not in any form of acute distress. He denies any pain or any discomfort. Blood sugar checked 79. Assisted with his needs. Call light placed within reach. Reminded to use call light for assistance with verbalized understanding.
[2017-10-31 08:39] VITALS: BP 121/64
[2017-10-31] MEDS: LACTOBACILLUS RHAMNOSUS GG 1 EACH CAPSULE PO SCH ×2 (09:02→21:22)
[2017-10-31] MEDS: FAMOTIDINE 20 MG TABLET PO SCH (09:02)
[2017-10-31] MEDS: ASPIRIN EC 81 MG TABLET.DR PO SCH (09:02)
[2017-10-31] MEDS: FERROUS GLUCONATE 324 MG TABLET PO SCH ×2 (09:02→21:22)
[2017-10-31 15:00] VITALS: BP 111/72
[2017-10-31] MEDS: ATORVASTATIN 20 MG TABLET PO SCH (21:22)
[2017-10-31] MEDS: DOCUSATE SODIUM 100 MG CAPSULE PO SCH (21:22)
[2017-10-31] MEDS: INSULIN REGULAR, HUMAN 300 UNITS/3 ML VIAL SQ PRN (21:44)
[2017-10-31 21:48] VITALS: BP 102/55
--- NOTE | 2017-10-31 22:00 | NUR ---
The patient received on bed awake and alert x2. Confused. No acute distress, no SOB. Has IV line on his right wrist gauge 22. No sign of inflammation. Meds given as ordered. Accucheck was done, BS WAS 137, Insulin coverage was administered. Call light and personal belonging within reach. Bed alarm and bed brakes on, side rails up x2 for safety precaution. Continue to monitor.
[2017-11-01] MEDS: TEMAZEPAM 7.5 MG CAPSULE PO PRN (00:44)
[2017-11-01] MEDS: BLOOD SUGAR DIAGNOSTIC 1 EACH STRIP VI SCH ×4 (06:51→21:00)
[2017-11-01 07:00] VITALS: BP 118/61
[2017-11-01 08:03] VITALS: BP 140/68
--- NOTE | 2017-11-01 09:00 | NUR ---
Received patient awake, alert x 1-2. With intact G20 IV over upper right arm. No pain noted. Not in any form of distress. NO SOB or chest pains, on RA
[2017-11-01 09:55] LABS: BASOPHILS # (AUTO) 0.1 K/uL (0.0-8.0); BASOPHILS % (AUTO) 1.8 % (0.0-2.0); EOSINOPHILS # (AUTO) 0.2 K/uL (0.0-0.7); EOSINOPHILS % (AUTO) 5.3 % (0.0-7.0); HEMATOCRIT 38.6 % (36.7-47.1); HEMOGLOBIN 12.7 g/dL (12.5-16.3); LYMPHOCYTES # (AUTO) 0.4 K/uL (20.0-40.0); LYMPHOCYTES % (AUTO) 9.8 % (20.5-51.5); MEAN CORPUSCULAR HEMOGLOBIN 26.7 uug (23.8-33.4); MEAN CORPUSCULAR HGB CONC 33 g/dL (32.5-36.3); MEAN CORPUSCULAR VOLUME 80.9 fL (73.0-96.2); MONOCYTES # (AUTO) 0.8 K/uL (2.0-10.0); MONOCYTES % (AUTO) 19.1 % (0.0-11.0); NEUTROPHILS # (AUTO) 2.6 K/uL (1.8-8.9); PLATELET COUNT (AUTO) 138 K/uL (152-348); RED BLOOD CELL COUNT(AUTO) 4.78 MIL/uL (4.06-5.63); WHITE BLOOD COUNT (AUTO) 4.1 K/uL (3.6-10.2)
[2017-11-01 10:02] LABS: ALANINE AMINOTRANSFERASE 13 U/L (16-63); ALKALINE PHOSPHATASE 218 U/L (50-136); ASPARTATE AMINOTRANSFERASE 19 U/L (15-37); BILIRUBIN,TOTAL 1.3 mg/dL (0.2-1.0); CARBON DIOXIDE 25 mmol/L (21-32); CHLORIDE 102 mmol/L (98-107); CREATININE 1.4 mg/dL (0.6-1.3); GLUCOSE 119 mg/dL (74-106); MAGNESIUM 1.9 mg/dL (1.8-2.4); PHOSPHOROUS 3.5 mg/dL (2.5-4.9); POTASSIUM 3.5 mmol/L (3.5-5.1); UREA NITROGEN, BLOOD 22 mg/dL (7-18)
[2017-11-01 10:09] LABS: EOSINOPHILS % (MANUAL) 5 % (0-8); LYMPHOCYTES % (MANUAL) 10 % (20-40); MONOCYTES % (MANUAL) 17 % (2-10); NEUTROPHILS % (MANUAL) 68 % (42-75)
[2017-11-01] MEDS: FAMOTIDINE 20 MG TABLET PO SCH (10:25)
[2017-11-01] MEDS: LACTOBACILLUS RHAMNOSUS GG 1 EACH CAPSULE PO SCH ×2 (10:25→22:08)
[2017-11-01] MEDS: ASPIRIN EC 81 MG TABLET.DR PO SCH (10:25)
[2017-11-01] MEDS: FERROUS GLUCONATE 324 MG TABLET PO SCH ×2 (10:25→22:08)
[2017-11-01] MEDS: MUPIROCIN 2% OINT 22 GM TUBE TP SCH ×2 (15:53→22:09)
--- NOTE | 2017-11-01 16:25 | NUR ---
Dressing changed as ordered. Wound healing well, no discharges noted.
[2017-11-01] MEDS: INSULIN REGULAR, HUMAN 300 UNIT/3 ML VIAL SQ PRN (17:06)
[2017-11-01 19:30] VITALS: BP 111/73
--- NOTE | 2017-11-01 21:20 | NUR ---
The patient received on bed awake and alert x2. Confused. No acute distress, no SOB. Has IV line on his right wrist gauge 22. No sign of inflammation. Meds given as ordered. Accucheck was done, BS WAS 143, Insulin coverage was administered. Call light and personal belonging within reach. Bed alarm and bed brakes on, side rails up x2 for safety precaution. Continue to monitor.
--- NOTE | 2017-11-01 22:00 | NUR ---
Dressing changed. Wound healing, no discharge. Apply Mupirocin 2% oint, apply Xeroform, cover with abdominal pad, Secure gently with Kerlix. Continue to monitor.
[2017-11-01] MEDS: DOCUSATE SODIUM 100 MG CAPSULE PO SCH (22:08)
[2017-11-01] MEDS: ATORVASTATIN 20 MG TABLET PO SCH (22:08)
[2017-11-01] MEDS: INSULIN REGULAR, HUMAN 300 UNITS/3 ML VIAL SQ PRN (22:21)
[2017-11-02] MEDS: TEMAZEPAM 7.5 MG CAPSULE PO PRN (00:06)
[2017-11-02] MEDS: BLOOD SUGAR DIAGNOSTIC 1 EACH STRIP VI SCH ×2 (07:00→12:38)
[2017-11-02 07:57] VITALS: BP 99/62
[2017-11-02] MEDS: LACTOBACILLUS RHAMNOSUS GG 1 EACH CAPSULE PO SCH ×2 (10:41→21:42)
[2017-11-02] MEDS: FERROUS GLUCONATE 324 MG TABLET PO SCH ×2 (10:41→21:42)
[2017-11-02] MEDS: FAMOTIDINE 20 MG TABLET PO SCH (10:41)
[2017-11-02] MEDS: ASPIRIN EC 81 MG TABLET.DR PO SCH (10:41)
[2017-11-02] MEDS: MUPIROCIN 2% OINT 22 GM TUBE TP SCH ×2 (10:42→21:43)
--- NOTE | 2017-11-02 11:26 | NUR ---
WOUND CARE CONSULT: PT PRESENTS WITH SACRAL ABRASION OVER AREA OF PREVIOUS SCARRING. PT STATES WAS SCOOTING ON HIS BUTTOCKS. HEALING WOUND NOTED TO LEFT LOWER LEG. RECOMMENDATIONS MADE FOR WOUND CARE AND SKIN PROTECTION. DISCUSSED WITH NURSING STAFF AND P.TObdulia BUSTOS RECOMMENDED FOR WOUND CARE BASED ON CULTURE RESULTS. WILL SEE PRN. [facility]. PT NOTED TO HAVE GENERALIZED EDEMA. MD IN AGREEMENT WITH PLAN OF CARE. Addendum: 11/02/17 at 1128 by ELAINE GIMENEZ RN Amended: Links added.
--- NOTE | 2017-11-02 19:00 | NUR ---
Received patient awake, in bed. No s/s of pain/discomforts noted. No s/s of respiratory distress. Bilateral arm bruises noted. Right AC HL intact and patent with old blood stain noted. Fall precaution and safety measures maintained. Left kelly dressing dry and intact.Continue care as planned.
[2017-11-02 21:31] VITALS: BP 107/69
[2017-11-02] MEDS: DOCUSATE SODIUM 100 MG CAPSULE PO SCH (21:42)
[2017-11-03] MEDS: HYDROCODONE/APAP 5-325MG TABLET PO PRN (02:51)
--- NOTE | 2017-11-03 02:55 | NUR ---
Very restless and moaning, medicated for pain as needed and ordered. Will monitor.
[2017-11-03 05:08] VITALS: BP 107/64
[2017-11-03 08:00] VITALS: BP 126/83
--- NOTE | 2017-11-03 08:15 | NUR ---
Received patient awake, alert and confused. no complaint of pain/discomfort. Continue PO meds for DM. not in distress. will continue monitor
[2017-11-03] MEDS: ASPIRIN EC 81 MG TABLET.DR PO SCH (09:55)
[2017-11-03] MEDS: FAMOTIDINE 20 MG TABLET PO SCH (09:55)
[2017-11-03] MEDS: GLIMEPIRIDE 2 MG TABLET PO SCH (09:55)
[2017-11-03] MEDS: LACTOBACILLUS RHAMNOSUS GG 1 EACH CAPSULE PO SCH ×2 (09:55→20:27)
[2017-11-03] MEDS: FERROUS GLUCONATE 324 MG TABLET PO SCH ×2 (09:56→20:27)
[2017-11-03] MEDS: MUPIROCIN 2% OINT 22 GM TUBE TP SCH ×2 (09:59→20:27)
[2017-11-03 19:30] VITALS: BP 89/64
[2017-11-03] MEDS: DOCUSATE SODIUM 100 MG CAPSULE PO SCH (20:27)
[2017-11-03 20:34] VITALS: BP 112/80
[2017-11-04 05:00] VITALS: BP 105/70
[2017-11-04] MEDS: BENZOCAINE/MENTH/CETYLPYRD LOZENGE MM PRN (05:17)
--- NOTE | 2017-11-04 06:56 | NUR ---
MONITORED THROUGHOUT SHIFT, RISK FOR FALLS, VERY CONFUSED. BED ALARM ON, COUGH AT TIMES. WOUND TX DONE. SAFETY MEASURES PROVIDED.
[2017-11-04 07:51] VITALS: BP 122/71
[2017-11-04] MEDS: ASPIRIN EC 81 MG TABLET.DR PO SCH (08:06)
[2017-11-04] MEDS: LACTOBACILLUS RHAMNOSUS GG 1 EACH CAPSULE PO SCH ×2 (08:07→20:47)
[2017-11-04] MEDS: GLIMEPIRIDE 2 MG TABLET PO SCH (08:07)
[2017-11-04] MEDS: MUPIROCIN 2% OINT 22 GM TUBE TP SCH ×2 (08:07→20:48)
[2017-11-04] MEDS: FAMOTIDINE 20 MG TABLET PO SCH (08:07)
[2017-11-04] MEDS: FERROUS GLUCONATE 324 MG TABLET PO SCH ×2 (08:07→20:47)
[2017-11-04 15:47] VITALS: BP 99/64
--- NOTE | 2017-11-04 17:33 | NUR ---
End of shift report: patient remained stable throughout the shift with no acute changes noted. no SOB or distress. Denies any pain or discomforts. Wound care treatment done as ordered- tolerated well. Turned and repositioned. safety precautions observed. Hourly rounding cisco, call light and telephone within reach at all times, bed alarm and bed brakes on for safety. encouraged to use call light whenever assistance is needed. Will endorse accordingly to incoming shift for continuity of care.
--- NOTE | 2017-11-04 19:25 | NUR ---
RECEIVED PT AWAKE, ALERT, AND ORIENTEDX3. PT SHOWS NO SIGNS OF DISTRESS. CALL LIGHT WITHIN REACH, BED ALARM ON AND IN LOW POSITIONS, SIDE RAILS UPX2. PT CAN VERBALIZE HIS NEEDS. NO COMPLAINT OF PAIN. WILL CONTINUE TO MONITOR.
[2017-11-04 19:55] VITALS: BP 114/58
[2017-11-04] MEDS: DOCUSATE SODIUM 100 MG CAPSULE PO SCH (20:47)
--- NOTE | 2017-11-05 06:15 | NUR ---
PT SLEPT THROUGHOUT THE SHIFT. PT SHOWS NO SIGNS OF DISTRESS. PRESCRIBED MEDICATION GIVEN AND PT TOLERATED IT WELL.HOURLY ROUNDING DONE. WOUND CARE DONE. SAFETY AND COMFORT PROVIDED. ALL NEEDS ARE MET.WILL ENDORSE TO INCOMING NURSE.
[2017-11-05 08:11] VITALS: BP 119/57
[2017-11-05] MEDS: LACTOBACILLUS RHAMNOSUS GG 1 EACH CAPSULE PO SCH ×2 (09:00→20:28)
[2017-11-05] MEDS: FAMOTIDINE 20 MG TABLET PO SCH (09:00)
[2017-11-05] MEDS: ASPIRIN EC 81 MG TABLET.DR PO SCH (09:00)
[2017-11-05] MEDS: FERROUS GLUCONATE 324 MG TABLET PO SCH ×2 (09:00→20:28)
[2017-11-05] MEDS: GLIMEPIRIDE 2 MG TABLET PO SCH (09:01)
[2017-11-05] MEDS: MUPIROCIN 2% OINT 22 GM TUBE TP SCH ×2 (09:03→20:29)
--- NOTE | 2017-11-05 09:45 | NUR ---
SBAR report received, board updated. Pt assessed, no acute distress at this time. Bed in locked and lowest position with side rails up x2. Pt compliant with routine morning medication administration. Pt assisted to sit up in wheelchair for breakfast consumption. Plan for today discussed. All comfort and safety measures implemented. Call light within reach. Will continue to monitor.
--- NOTE | 2017-11-05 18:24 | NUR ---
Pt clean, dry, and mepilex applied to sacral area. Repositioned for comfort Q2hrs. All safety needs promptly attended to throughout this shift. No change in Pt status. Pt denies discomfort. Cooling measures such as an ice pack and wet wash cloth provided. Call light and personal belongings placed within reach. Will continue to monitor and endorse to oncoming bottom stainer.
--- NOTE | 2017-11-05 19:00 | NUR ---
Received patient awake, confused, quite restless, trying to get out of bed. No s/s of pain/discomforts at this time. Safety measure and fall precaution maintained. Continue care as planned.
[2017-11-05 20:26] VITALS: BP 102/72
[2017-11-05] MEDS: DOCUSATE SODIUM 100 MG CAPSULE PO SCH (20:28)
--- NOTE | 2017-11-06 06:48 | NUR ---
Shift End Report: Vs stable. No complaint of pain/discomforts presented all night. No fall/injury reported. All needs attended and met. No significant event reported. Continue care as planned.
--- NOTE | 2017-11-06 07:27 | NUR ---
Received patient sleeping, alert and confused. Fo discharge today around 11am. not in distress. no complaint voiced. will continue monitor
[2017-11-06 08:00] VITALS: BP 96/53
[2017-11-06] MEDS: FERROUS GLUCONATE 324 MG TABLET PO SCH (08:18)
[2017-11-06] MEDS: ASPIRIN EC 81 MG TABLET.DR PO SCH (08:18)
[2017-11-06] MEDS: LACTOBACILLUS RHAMNOSUS GG 1 EACH CAPSULE PO SCH (08:18)
[2017-11-06] MEDS: GLIMEPIRIDE 2 MG TABLET PO SCH (08:18)
[2017-11-06] MEDS: FAMOTIDINE 20 MG TABLET PO SCH (08:18)
[2017-11-06] MEDS: MUPIROCIN 2% OINT 22 GM TUBE TP SCH (08:20)
--- NOTE | 2017-11-06 12:10 | NUR ---
Patient discharge to [facility] for continuity of care on stable condition. Report given to nurse Guzman from the facility. verbalize understanding. Patient went out around 1130 am via stretcher with 2 EMT. not in distress. no complaint of pain/discomfort noted. MD and family aware.
--- NOTE | 2017-11-10 17:02 | NUR ---
INTERDISCIPLINARY TEAM CONFERENCE
== END 2017-11-06 15:03 | DRG 70 ==
LOC: SA1 10-25 18:38
PROVIDERS: ADMIT Physical Medicine & Rehabilitation Pain Medicine; ATTEND Physical Medicine & Rehabilitation Pain Medicine
DX: G93.41 Metabolic encephalopathy (principal); J15.9 Unspecified bacterial pneumonia; E43 Unspecified severe protein-calorie malnutrition; D68.59 Other primary thrombophilia; I13.0 Hypertensive heart and chronic kidney disease with heart failure and stage 1 through stage 4 chronic kidney disease, or unspecified chronic kidney disease; I50.22 Chronic systolic (congestive) heart failure; L03.116 Cellulitis of left lower limb; D61.818 Other pancytopenia; F23 Brief psychotic disorder; K76.6 Portal hypertension; I08.3 Combined rheumatic disorders of mitral, aortic and tricuspid valves; E11.22 Type 2 diabetes mellitus with diabetic chronic kidney disease; F03.90 Unspecified dementia, unspecified severity, without behavioral disturbance, psychotic disturbance, mood disturbance, and anxiety; I25.5 Ischemic cardiomyopathy; I25.10 Atherosclerotic heart disease of native coronary artery without angina pectoris; K21.9 Gastro-esophageal reflux disease without esophagitis; K74.60 Unspecified cirrhosis of liver; Z91.81 History of falling; Z86.73 Personal history of transient ischemic attack (TIA), and cerebral infarction without residual deficits; Z95.810 Presence of automatic (implantable) cardiac defibrillator; Z96.649 Presence of unspecified artificial hip joint; R62.7 Adult failure to thrive; Z95.1 Presence of aortocoronary bypass graft; D50.9 Iron deficiency anemia, unspecified; D63.8 Anemia in other chronic diseases classified elsewhere; E78.5 Hyperlipidemia, unspecified; G93.49 Other encephalopathy; I27.20 Pulmonary hypertension, unspecified; I48.2 Chronic atrial fibrillation; M19.90 Unspecified osteoarthritis, unspecified site; N18.9 Chronic kidney disease, unspecified; S81.812D Laceration without foreign body, left lower leg, subsequent encounter; W18.30XD Fall on same level, unspecified, subsequent encounter; Z86.19 Personal history of other infectious and parasitic diseases; R29.6 Repeated falls; J02.9 Acute pharyngitis, unspecified; R00.1 Bradycardia, unspecified; R26.9 Unspecified abnormalities of gait and mobility; R97.20 Elevated prostate specific antigen [PSA]; I73.9 Peripheral vascular disease, unspecified
CPT/HCPCS: 36415; 70030-TC; 71045; 78306; 82306; 83735; 84100; 84443; 85025; 87040; 87070; 87077; 92523; 92526; 92610; 97110; 97112; 97116; 97530; 97535; A4217; A4663; A9503; C1758; J1815; J2543; J3370; J7030; J7040

== ENCOUNTER 2017-11-25 16:35 | Inpatient (IN) | payer MEDICARE ==
[~2017-11-25] VITALS: Ht 172.7 cm; Wt 69.5 kg
[~2017-11-25 16:35] MED LIST: ASPI-605 PO; DIGO125T5 PO; FAMO-132 PO; HYDR-3326 PO; METF500T6 PO; ROSU10TA PO; TEMA7.5C PO; VANC750P7 IV
[2017-11-25] MEDS ORDERED: FERR324T PO (16:56)
[2017-11-25] MEDS ORDERED: MULT1TAB73 PO (16:56)
[2017-11-25] MEDS ORDERED: DOCU100C36 PO (16:56)
[2017-11-25] MEDS ORDERED: GLIM1TAB3 PO (16:56)
[2017-11-25] MEDS ORDERED: MAGN400O6 PO (16:56)
[2017-11-25] MEDS ORDERED: ACET-2154 PO (16:56)
[2017-11-25 17:57] LABS: BASOPHILS # (AUTO) 0.1 K/uL (0.0-8.0); BASOPHILS % (AUTO) 1.5 % (0.0-2.0); CARBON DIOXIDE 23 mmol/L (21-32); CHLORIDE 102 mmol/L (98-107); CREATININE 1.7 mg/dL (0.6-1.3); EOSINOPHILS % (AUTO) 0.2 % (0.0-7.0); GLUCOSE 87 mg/dL (74-106); HEMATOCRIT 41.1 % (36.7-47.1); HEMOGLOBIN 13.4 g/dL (12.5-16.3); LYMPHOCYTES # (AUTO) 0.1 K/uL (20.0-40.0); LYMPHOCYTES % (AUTO) 3.2 % (20.5-51.5); MEAN CORPUSCULAR HEMOGLOBIN 27.4 uug (23.8-33.4); MEAN CORPUSCULAR HGB CONC 33 g/dL (32.5-36.3); MEAN CORPUSCULAR VOLUME 84.2 fL (73.0-96.2); MONOCYTES # (AUTO) 0.7 K/uL (2.0-10.0); MONOCYTES % (AUTO) 17.3 % (0.0-11.0); NEUTROPHILS # (AUTO) 3.2 K/uL (1.8-8.9); NEUTROPHILS % (AUTO) 77.8 % (38.5-71.5); PLATELET COUNT (AUTO) 151 K/uL (152-348); POTASSIUM 4.1 mmol/L (3.5-5.1); RED BLOOD CELL COUNT(AUTO) 4.88 MIL/uL (4.06-5.63); UREA NITROGEN, BLOOD 46 mg/dL (7-18); WHITE BLOOD COUNT (AUTO) 4.2 K/uL (3.6-10.2)
[2017-11-25] MEDS ORDERED: DILTIAZEM HCL 25 MG IV IV ONE (18:00)
[2017-11-25 18:03] LABS: ALANINE AMINOTRANSFERASE 20 U/L (16-63); ALKALINE PHOSPHATASE 231 U/L (50-136); ASPARTATE AMINOTRANSFERASE 23 U/L (15-37); BILIRUBIN,DIRECT 1.5 mg/dL (0.0-0.2); BILIRUBIN,TOTAL 2.5 mg/dL (0.2-1.0); LIPASE 70 U/L (73-393); TOTAL PROTEIN, SERUM 7.3 g/dL (6.4-8.2)
[2017-11-25] MEDS ORDERED: DILTIAZEM HCL 25 MG IV ONE (18:29)
[2017-11-25 19:40] LABS: BAND % (MANUAL) 6 % (0-10); LYMPHOCYTES % (MANUAL) 5 % (20-40); MONOCYTES % (MANUAL) 13 % (2-10); NEUTROPHILS % (MANUAL) 76 % (42-75)
[2017-11-25 20:35] LABS: *BLOOD, URINE 1+ (NEGATIVE); *CLARITY,URINE SLIGHTLY CLOUDY (CLEAR); *COLOR,URINE Other (YELLOW); *KETONES,URINE NEGATIVE (NEGATIVE); *PROTEIN,URINE 2+ (NEGATIVE); LEUKOCYTE ESTERASE ,URINE NEGATIVE (NEGATIVE); NITRITE, URINE NEGATIVE (NEGATIVE); UGLUCOSE NEGATIVE (NEGATIVE)
[2017-11-25 20:36] LABS: *BILIRUBIN,URIN 1+ (NEGATIVE)
[2017-11-25 20:48] LABS: BACTERIA,URINE FEW /HPF (NONE SEEN); SQUAMOUS EPITHELIAL CELL,UR FEW /HPF (NONE SEEN); WBC,URINE 0-3 /HPF (0-3)
[2017-11-25 22:23] VITALS: BP 105/64
[2017-11-25] MEDS ORDERED: ALBUTEROL SULFATE 2.5 MG/3 ML NEBU NEB PRN (23:15)
[2017-11-25] MEDS ORDERED: ACETAMINOPHEN 650 MG SUPP.RECT RC PRN (23:15)
[2017-11-26] MEDS: IV D5/ 0.9% NACL 1,000 ML IV PRN ×2 (00:14→16:52)
[2017-11-26 00:20] VITALS: BP 101/55
[2017-11-26 04:00] VITALS: BP 94/61
[2017-11-26 06:12] LABS: BASOPHILS % (AUTO) 0.3 % (0.0-2.0); EOSINOPHILS % (AUTO) 0.1 % (0.0-7.0); HEMATOCRIT 37.7 % (36.7-47.1); HEMOGLOBIN 12.1 g/dL (12.5-16.3); LYMPHOCYTES # (AUTO) 0.3 K/uL (20.0-40.0); LYMPHOCYTES % (AUTO) 6.1 % (20.5-51.5); MEAN CORPUSCULAR HEMOGLOBIN 27.6 uug (23.8-33.4); MEAN CORPUSCULAR HGB CONC 32 g/dL (32.5-36.3); MEAN CORPUSCULAR VOLUME 85.7 fL (73.0-96.2); MONOCYTES # (AUTO) 0.7 K/uL (2.0-10.0); MONOCYTES % (AUTO) 16.7 % (0.0-11.0); NEUTROPHILS # (AUTO) 3.2 K/uL (1.8-8.9); NEUTROPHILS % (AUTO) 76.8 % (38.5-71.5); PLATELET COUNT (AUTO) 131 K/uL (152-348); WHITE BLOOD COUNT (AUTO) 4.2 K/uL (3.6-10.2)
[2017-11-26 06:25] LABS: ALANINE AMINOTRANSFERASE 17 U/L (16-63); ALKALINE PHOSPHATASE 197 U/L (50-136); ASPARTATE AMINOTRANSFERASE 17 U/L (15-37); BILIRUBIN,TOTAL 2.1 mg/dL (0.2-1.0); CARBON DIOXIDE 29 mmol/L (21-32); CHLORIDE 108 mmol/L (98-107); CREATININE 1.9 mg/dL (0.6-1.3); GLUCOSE 117 mg/dL (74-106); MAGNESIUM 2.1 mg/dL (1.8-2.4); PHOSPHOROUS 4.2 mg/dL (2.5-4.9); POTASSIUM 4.1 mmol/L (3.5-5.1); TOTAL PROTEIN, SERUM 6.4 g/dL (6.4-8.2); UREA NITROGEN, BLOOD 49 mg/dL (7-18)
[2017-11-26] MEDS: FUROSEMIDE 20 MG/2 ML VIAL IV SCH ×2 (09:00→20:37)
[2017-11-26] MEDS: PANTOPRAZOLE SODIUM 40 MG VIAL IV SCH (11:18)
[2017-11-26 11:23] VITALS: BP 95/59
[2017-11-26] MEDS ORDERED: Z GUARD REMEDY PASTE 57 GM TUBE TOP PRN (11:45)
[2017-11-26 14:36] LABS: BAND % (MANUAL) 15 % (0-10); BASOPHILS % (MANUAL) 1 % (0-2); LYMPHOCYTES % (MANUAL) 6 % (20-40); MONOCYTES % (MANUAL) 11 % (2-10); NEUTROPHILS % (MANUAL) 67 % (42-75)
[2017-11-26 15:51] VITALS: BP 91/61
[2017-11-26] MEDS ORDERED: VANCOMYCIN IV 1 G in PREMIXED 0 EACH IV ONE (16:00)
[2017-11-26] MEDS: PIPERACILLIN/TAZOBACTAM/D5W 2.25 G in PREMIXED 1 EACH IV SCH ×2 (16:44→20:34)
[2017-11-26] MEDS: NYSTATIN POWDER 15 GM BOTTLE TOP SCH ×2 (16:44→20:37)
[2017-11-26 20:00] VITALS: BP 103/61
[2017-11-26] MEDS: Z GUARD REMEDY PASTE 57 GM TUBE TOP SCH (20:38)
[2017-11-27] VITALS: BP 89/61
[2017-11-27] MEDS: PIPERACILLIN/TAZOBACTAM/D5W 2.25 G in PREMIXED 1 EACH IV SCH ×3 (02:34→14:24)
[2017-11-27 04:00] VITALS: BP 100/77
[2017-11-27 06:38] LABS: CARBON DIOXIDE 27 mmol/L (21-32); CHLORIDE 108 mmol/L (98-107); CREATININE 1.7 mg/dL (0.6-1.3); GLUCOSE 91 mg/dL (74-106); MAGNESIUM 2.1 mg/dL (1.8-2.4); PHOSPHOROUS 3.6 mg/dL (2.5-4.9); POTASSIUM 3.5 mmol/L (3.5-5.1); UREA NITROGEN, BLOOD 48 mg/dL (7-18); VANCOMYCIN,RANDOM 9.6 ug/mL (18.0-26.0)
[2017-11-27] MEDS ORDERED: SILVER NITRATE APPLICATOR STICK EACH TP ONE (07:00)
[2017-11-27] MEDS ORDERED: LIDOCAINE 1%-EPI 1:100,000 20 ML VIAL TP ONE ×2 (07:00→11:30)
[2017-11-27 07:11] LABS: BASOPHILS % (AUTO) 0.8 % (0.0-2.0); EOSINOPHILS # (AUTO) 0.1 K/uL (0.0-0.7); EOSINOPHILS % (AUTO) 2.5 % (0.0-7.0); HEMATOCRIT 38.8 % (36.7-47.1); HEMOGLOBIN 12.4 g/dL (12.5-16.3); LYMPHOCYTES # (AUTO) 0.3 K/uL (20.0-40.0); LYMPHOCYTES % (AUTO) 5.8 % (20.5-51.5); MEAN CORPUSCULAR HEMOGLOBIN 27.6 uug (23.8-33.4); MEAN CORPUSCULAR HGB CONC 32 g/dL (32.5-36.3); MEAN CORPUSCULAR VOLUME 86.2 fL (73.0-96.2); MONOCYTES # (AUTO) 0.6 K/uL (2.0-10.0); MONOCYTES % (AUTO) 14.2 % (0.0-11.0); NEUTROPHILS # (AUTO) 3.3 K/uL (1.8-8.9); NEUTROPHILS % (AUTO) 76.7 % (38.5-71.5); PLATELET COUNT (AUTO) 118 K/uL (152-348); WHITE BLOOD COUNT (AUTO) 4.3 K/uL (3.6-10.2)
[2017-11-27] MEDS: PANTOPRAZOLE SODIUM 40 MG VIAL IV SCH (08:34)
[2017-11-27] MEDS: FUROSEMIDE 20 MG/2 ML VIAL IV SCH ×2 (08:34→20:45)
[2017-11-27] MEDS: Z GUARD REMEDY PASTE 57 GM TUBE TOP SCH ×2 (08:36→20:46)
[2017-11-27] MEDS ORDERED: VANCOMYCIN IV 1 G in PREMIXED 0 EACH IV ONE (09:00)
[2017-11-27 11:35] VITALS: BP 111/72
[2017-11-27] MEDS: IV D5/ 0.9% NACL 1,000 ML IV PRN (11:39)
[2017-11-27] MEDS: NYSTATIN POWDER 15 GM BOTTLE TOP SCH ×2 (11:41→20:46)
[2017-11-27 15:39] VITALS: BP 118/70
[2017-11-27 20:00] VITALS: BP 101/65
[2017-11-27] MEDS: CEFEPIME HCL 1 G in IV DEXTROSE 5% 50 ML IV SCH (20:45)
[2017-11-28] VITALS: BP 95/59
[2017-11-28 04:00] VITALS: BP 116/56
[2017-11-28] MEDS: FUROSEMIDE 20 MG/2 ML VIAL IV SCH (08:48)
[2017-11-28] MEDS: MORPHINE SULFATE 2 MG/1 ML DISP.SYRIN IV PRN (08:49)
[2017-11-28] MEDS: IV D5/ 0.9% NACL 1,000 ML IV PRN (08:50)
[2017-11-28] MEDS: NYSTATIN POWDER 15 GM BOTTLE TOP SCH ×2 (08:50→20:31)
[2017-11-28] MEDS: CEFEPIME HCL 1 G in IV DEXTROSE 5% 50 ML IV SCH (08:50)
[2017-11-28] MEDS: Z GUARD REMEDY PASTE 57 GM TUBE TOP SCH ×2 (08:51→20:32)
[2017-11-28] MEDS: PANTOPRAZOLE SODIUM 40 MG VIAL IV SCH (08:52)
[2017-11-28] MEDS ORDERED: LIDOCAINE 1%-EPI 1:100,000 20 ML VIAL TP PRN (09:00)
[2017-11-28] MEDS ORDERED: VANCOMYCIN IV 1 G in PREMIXED 0 EACH IV ONE (09:00)
[2017-11-28] MEDS: BISOPROLOL FUMARATE 5 MG TABLET PO SCH (10:30)
[2017-11-28] MEDS ORDERED: FUROSEMIDE 20 MG/2 ML VIAL IV ONE (10:30)
[2017-11-28 11:01] LABS: CARBON DIOXIDE 25 mmol/L (21-32); CHLORIDE 110 mmol/L (98-107); CREATININE 1.9 mg/dL (0.6-1.3); GLUCOSE 95 mg/dL (74-106); POTASSIUM 3.4 mmol/L (3.5-5.1); UREA NITROGEN, BLOOD 50 mg/dL (7-18)
[2017-11-28 11:08] VITALS: BP 95/64
[2017-11-28] MEDS: POTASSIUM CHLORIDE 50 ML IV SCH ×2 (12:10→13:08)
[2017-11-28 15:37] VITALS: BP 102/62
[2017-11-28 20:24] VITALS: BP 107/70
[2017-11-28] MEDS: FUROSEMIDE 40 MG/4 ML VIAL IV SCH (20:32)
[2017-11-28] MEDS ORDERED: FUROSEMIDE 20 MG/2 ML VIAL IV SCH (21:00)
[2017-11-29 00:06] VITALS: BP 106/68
[2017-11-29 04:19] VITALS: BP 114/79
[2017-11-29] MEDS ORDERED: CEFEPIME HCL 1 G in IV DEXTROSE 5% 50 ML IV SCH (09:00)
[2017-11-29] MEDS: Z GUARD REMEDY PASTE 57 GM TUBE TOP SCH ×2 (09:11→21:14)
[2017-11-29] MEDS: NYSTATIN POWDER 15 GM BOTTLE TOP SCH ×2 (09:12→21:14)
[2017-11-29] MEDS: BISOPROLOL FUMARATE 5 MG TABLET PO SCH (09:27)
[2017-11-29] MEDS: FUROSEMIDE 40 MG/4 ML VIAL IV SCH ×2 (09:35→21:00)
[2017-11-29 11:33] VITALS: BP 95/55
[2017-11-29 15:37] VITALS: BP 100/60
[2017-11-29 20:00] VITALS: BP 91/56
[2017-11-30] VITALS: BP 116/59
[2017-11-30 04:00] VITALS: BP 96/63
[2017-11-30] MEDS: PANTOPRAZOLE SODIUM 40 MG VIAL IV SCH (06:34)
[2017-11-30 07:09] LABS: BASOPHILS % (AUTO) 1.2 % (0.0-2.0); EOSINOPHILS # (AUTO) 0.1 K/uL (0.0-0.7); EOSINOPHILS % (AUTO) 3.8 % (0.0-7.0); HEMATOCRIT 42.3 % (36.7-47.1); HEMOGLOBIN 13.8 g/dL (12.5-16.3); LYMPHOCYTES # (AUTO) 0.4 K/uL (20.0-40.0); LYMPHOCYTES % (AUTO) 11.4 % (20.5-51.5); MEAN CORPUSCULAR HEMOGLOBIN 27.9 uug (23.8-33.4); MEAN CORPUSCULAR HGB CONC 33 g/dL (32.5-36.3); MEAN CORPUSCULAR VOLUME 85.4 fL (73.0-96.2); MONOCYTES # (AUTO) 0.6 K/uL (2.0-10.0); MONOCYTES % (AUTO) 18.9 % (0.0-11.0); NEUTROPHILS # (AUTO) 2.2 K/uL (1.8-8.9); NEUTROPHILS % (AUTO) 64.7 % (38.5-71.5); PLATELET COUNT (AUTO) 115 K/uL (152-348); RED BLOOD CELL COUNT(AUTO) 4.95 MIL/uL (4.06-5.63); WHITE BLOOD COUNT (AUTO) 3.4 K/uL (3.6-10.2)
[2017-11-30 07:26] LABS: ALANINE AMINOTRANSFERASE 18 U/L (16-63); ALKALINE PHOSPHATASE 189 U/L (50-136); ASPARTATE AMINOTRANSFERASE 17 U/L (15-37); BILIRUBIN,TOTAL 2.2 mg/dL (0.2-1.0); CARBON DIOXIDE 30 mmol/L (21-32); CHLORIDE 106 mmol/L (98-107); CREATININE 1.8 mg/dL (0.6-1.3); GLUCOSE 71 mg/dL (74-106); MAGNESIUM 1.9 mg/dL (1.8-2.4); PHOSPHOROUS 3.4 mg/dL (2.5-4.9); POTASSIUM 3.6 mmol/L (3.5-5.1); TOTAL PROTEIN, SERUM 7.4 g/dL (6.4-8.2); UREA NITROGEN, BLOOD 47 mg/dL (7-18); VANCOMYCIN,RANDOM 19.5 ug/mL (18.0-26.0)
[2017-11-30] MEDS: FUROSEMIDE 40 MG/4 ML VIAL IV SCH ×2 (08:42→21:00)
[2017-11-30] MEDS: NYSTATIN POWDER 15 GM BOTTLE TOP SCH ×2 (08:43→21:01)
[2017-11-30] MEDS: Z GUARD REMEDY PASTE 57 GM TUBE TOP SCH ×2 (08:43→21:01)
[2017-11-30] MEDS: BISOPROLOL FUMARATE 5 MG TABLET PO SCH (08:44)
[2017-11-30 09:10] LABS: NEUTROPHILS % (MANUAL) 65 % (42-75)
[2017-11-30 09:11] LABS: EOSINOPHILS % (MANUAL) 7 % (0-8); LYMPHOCYTES % (MANUAL) 16 % (20-40); MONOCYTES % (MANUAL) 12 % (2-10)
[2017-11-30 11:45] VITALS: BP 109/67
[2017-11-30 15:43] VITALS: BP 96/58
[2017-11-30 19:00] VITALS: BP 97/63
[2017-12-01 04:00] VITALS: BP 99/65
[2017-12-01] MEDS: PANTOPRAZOLE SODIUM 40 MG VIAL IV SCH (06:06)
[2017-12-01] MEDS: BISOPROLOL FUMARATE 5 MG TABLET PO SCH (08:52)
[2017-12-01] MEDS: Z GUARD REMEDY PASTE 57 GM TUBE TOP SCH ×2 (08:52→20:52)
[2017-12-01] MEDS: NYSTATIN POWDER 15 GM BOTTLE TOP SCH ×2 (08:52→20:53)
[2017-12-01] MEDS: FUROSEMIDE 40 MG/4 ML VIAL IV SCH ×2 (08:54→20:52)
[2017-12-01 11:50] VITALS: BP 100/64
[2017-12-01 15:04] VITALS: BP 106/61
[2017-12-01 20:00] VITALS: BP 106/68
[2017-12-02 04:00] VITALS: BP 106/63
[2017-12-02] MEDS: PANTOPRAZOLE SODIUM 40 MG TABLET.DR PO SCH (06:03)
[2017-12-02 06:35] LABS: BASOPHILS % (AUTO) 0.1 % (0.0-2.0); EOSINOPHILS % (AUTO) 0.1 % (0.0-7.0); HEMATOCRIT 42.6 % (36.7-47.1); HEMOGLOBIN 13.8 g/dL (12.5-16.3); LYMPHOCYTES # (AUTO) 0.2 K/uL (20.0-40.0); MEAN CORPUSCULAR HEMOGLOBIN 27.4 uug (23.8-33.4); MEAN CORPUSCULAR HGB CONC 32 g/dL (32.5-36.3); MEAN CORPUSCULAR VOLUME 84.9 fL (73.0-96.2); MONOCYTES # (AUTO) 1.1 K/uL (2.0-10.0); MONOCYTES % (AUTO) 13.5 % (0.0-11.0); NEUTROPHILS % (AUTO) 83.3 % (38.5-71.5); PLATELET COUNT (AUTO) 122 K/uL (152-348); RED BLOOD CELL COUNT(AUTO) 5.02 MIL/uL (4.06-5.63); WHITE BLOOD COUNT (AUTO) 8.4 K/uL (3.6-10.2)
[2017-12-02 06:45] LABS: CARBON DIOXIDE 33 mmol/L (21-32); CHLORIDE 107 mmol/L (98-107); CREATININE 1.8 mg/dL (0.6-1.3); GLUCOSE 116 mg/dL (74-106); MAGNESIUM 1.9 mg/dL (1.8-2.4); PHOSPHOROUS 3.6 mg/dL (2.5-4.9); POTASSIUM 3.4 mmol/L (3.5-5.1); UREA NITROGEN, BLOOD 49 mg/dL (7-18)
[2017-12-02] MEDS: Z GUARD REMEDY PASTE 57 GM TUBE TOP SCH ×2 (08:21→20:43)
[2017-12-02] MEDS: FUROSEMIDE 40 MG/4 ML VIAL IV SCH (08:21)
[2017-12-02] MEDS: NYSTATIN POWDER 15 GM BOTTLE TOP SCH ×2 (08:21→20:43)
[2017-12-02 08:22] VITALS: BP 95/61
[2017-12-02 11:14] VITALS: BP 106/60
[2017-12-02] MEDS ORDERED: POTASSIUM CHLORIDE 10 MEQ TAB.PRT.SR PO ONE (12:15)
[2017-12-02] MEDS: MORPHINE SULFATE 2 MG/1 ML DISP.SYRIN IV PRN (12:28)
[2017-12-02] MEDS: SODIUM HYPOCHLORITE 0.125% 473 ML BOTTLE TP SCH (14:20)
[2017-12-02 15:03] VITALS: BP 91/55
[2017-12-02] MEDS ORDERED: MORPHINE SULFATE 2 MG/1 ML DISP.SYRIN IV PRN (15:15)
[2017-12-02] MEDS ORDERED: FUROSEMIDE 40 MG TABLET PO SCH (19:45)
[2017-12-02 20:00] VITALS: BP 95/57
[2017-12-02] MEDS ORDERED: VANCOMYCIN IV 1 G in PREMIXED 0 EACH IV SCH (20:30)
[2017-12-02] MEDS: MEROPENEM 500 MG in IV NORMAL SALINE 50 ML IV SCH (20:45)
[2017-12-03 04:00] VITALS: BP 96/65
[2017-12-03] MEDS: PANTOPRAZOLE SODIUM 40 MG TABLET.DR PO SCH (06:10)
[2017-12-03 06:42] LABS: CARBON DIOXIDE 33 mmol/L (21-32); CHLORIDE 112 mmol/L (98-107); CREATININE 1.7 mg/dL (0.6-1.3); GLUCOSE 54 mg/dL (74-106); POTASSIUM 3.7 mmol/L (3.5-5.1); UREA NITROGEN, BLOOD 50 mg/dL (7-18)
[2017-12-03] MEDS: MEROPENEM 500 MG in IV NORMAL SALINE 50 ML IV SCH ×2 (08:34→21:10)
[2017-12-03] MEDS: NYSTATIN POWDER 15 GM BOTTLE TOP SCH ×2 (08:35→21:10)
[2017-12-03] MEDS: SODIUM HYPOCHLORITE 0.125% 473 ML BOTTLE TP SCH (08:43)
[2017-12-03] MEDS: Z GUARD REMEDY PASTE 57 GM TUBE TOP SCH ×2 (08:46→21:10)
[2017-12-03 09:13] LABS: BASOPHILS % (AUTO) 0.3 % (0.0-2.0); HEMATOCRIT 44.5 % (36.7-47.1); HEMOGLOBIN 14.3 g/dL (12.5-16.3); LYMPHOCYTES # (AUTO) 0.2 K/uL (20.0-40.0); LYMPHOCYTES % (AUTO) 2.2 % (20.5-51.5); MEAN CORPUSCULAR HEMOGLOBIN 27.5 uug (23.8-33.4); MEAN CORPUSCULAR HGB CONC 32 g/dL (32.5-36.3); MEAN CORPUSCULAR VOLUME 85.8 fL (73.0-96.2); MONOCYTES # (AUTO) 1.3 K/uL (2.0-10.0); MONOCYTES % (AUTO) 11.5 % (0.0-11.0); NEUTROPHILS # (AUTO) 9.6 K/uL (1.8-8.9); PLATELET COUNT (AUTO) 117 K/uL (152-348); RED BLOOD CELL COUNT(AUTO) 5.19 MIL/uL (4.06-5.63); WHITE BLOOD COUNT (AUTO) 11.2 K/uL (3.6-10.2)
[2017-12-03] MEDS ORDERED: HYDROCODONE/APAP 5-325MG TABLET PO PRN (09:30)
[2017-12-03 11:16] VITALS: BP 102/54
[2017-12-03 15:32] VITALS: BP 102/64
[2017-12-03 20:00] VITALS: BP 129/54
[2017-12-03] MEDS ORDERED: VANCOMYCIN IV 1 G in PREMIXED 0 EACH IV ONE (21:00)
[2017-12-04 04:35] VITALS: BP 101/65
[2017-12-04 06:15] LABS: BASOPHILS % (AUTO) 0.2 % (0.0-2.0); EOSINOPHILS % (AUTO) 0.2 % (0.0-7.0); HEMATOCRIT 40.9 % (36.7-47.1); HEMOGLOBIN 13.3 g/dL (12.5-16.3); LYMPHOCYTES # (AUTO) 0.3 K/uL (20.0-40.0); LYMPHOCYTES % (AUTO) 2.9 % (20.5-51.5); MEAN CORPUSCULAR HEMOGLOBIN 27.6 uug (23.8-33.4); MEAN CORPUSCULAR HGB CONC 33 g/dL (32.5-36.3); MEAN CORPUSCULAR VOLUME 85.2 fL (73.0-96.2); MONOCYTES % (AUTO) 9.5 % (0.0-11.0); NEUTROPHILS % (AUTO) 87.2 % (38.5-71.5); PLATELET COUNT (AUTO) 120 K/uL (152-348); WHITE BLOOD COUNT (AUTO) 10.3 K/uL (3.6-10.2)
[2017-12-04] MEDS: PANTOPRAZOLE SODIUM 40 MG TABLET.DR PO SCH (06:17)
[2017-12-04 06:39] LABS: CARBON DIOXIDE 30 mmol/L (21-32); CHLORIDE 113 mmol/L (98-107); CREATININE 1.7 mg/dL (0.6-1.3); POTASSIUM 3.5 mmol/L (3.5-5.1)
[2017-12-04 07:02] LABS: UREA NITROGEN, BLOOD 58 mg/dL (7-18)
[2017-12-04 07:04] LABS: GLUCOSE 47 mg/dL (74-106)
[2017-12-04] MEDS ORDERED: DEXTROSE 50% 50 ML DISP.SYRIN IV ONE (07:30)
[2017-12-04] MEDS: MEROPENEM 500 MG in IV NORMAL SALINE 50 ML IV SCH ×2 (08:08→19:53)
[2017-12-04 11:35] VITALS: BP 98/68
[2017-12-04] MEDS: NYSTATIN POWDER 15 GM BOTTLE TOP SCH ×2 (12:00→19:53)
[2017-12-04] MEDS: SODIUM HYPOCHLORITE 0.125% 473 ML BOTTLE TP SCH (12:00)
[2017-12-04] MEDS: Z GUARD REMEDY PASTE 57 GM TUBE TOP SCH ×2 (12:02→19:59)
[2017-12-04 15:54] VITALS: BP 100/56
[2017-12-04 19:56] VITALS: BP 100/61
[2017-12-05 04:53] VITALS: BP 94/62
[2017-12-05] MEDS: PANTOPRAZOLE SODIUM 40 MG TABLET.DR PO SCH (05:51)
[2017-12-05 05:59] LABS: BASOPHILS # (AUTO) 0.1 K/uL (0.0-8.0); BASOPHILS % (AUTO) 0.6 % (0.0-2.0); EOSINOPHILS # (AUTO) 0.1 K/uL (0.0-0.7); EOSINOPHILS % (AUTO) 1.1 % (0.0-7.0); HEMATOCRIT 40.5 % (36.7-47.1); HEMOGLOBIN 13.2 g/dL (12.5-16.3); LYMPHOCYTES # (AUTO) 0.4 K/uL (20.0-40.0); LYMPHOCYTES % (AUTO) 4.2 % (20.5-51.5); MEAN CORPUSCULAR HEMOGLOBIN 27.2 uug (23.8-33.4); MEAN CORPUSCULAR HGB CONC 33 g/dL (32.5-36.3); MEAN CORPUSCULAR VOLUME 83.6 fL (73.0-96.2); MONOCYTES # (AUTO) 0.8 K/uL (2.0-10.0); NEUTROPHILS # (AUTO) 7.3 K/uL (1.8-8.9); NEUTROPHILS % (AUTO) 85.1 % (38.5-71.5); PLATELET COUNT (AUTO) 133 K/uL (152-348); RED BLOOD CELL COUNT(AUTO) 4.84 MIL/uL (4.06-5.63); WHITE BLOOD COUNT (AUTO) 8.6 K/uL (3.6-10.2)
[2017-12-05 06:51] LABS: CARBON DIOXIDE 29 mmol/L (21-32); CHLORIDE 110 mmol/L (98-107); CREATININE 1.7 mg/dL (0.6-1.3); POTASSIUM 3.3 mmol/L (3.5-5.1); UREA NITROGEN, BLOOD 63 mg/dL (7-18)
[2017-12-05 06:58] LABS: GLUCOSE 45 mg/dL (74-106)
[2017-12-05] MEDS ORDERED: DEXTROSE 50% 50 ML DISP.SYRIN IV ONE (07:15)
[2017-12-05] MEDS: Z GUARD REMEDY PASTE 57 GM TUBE TOP SCH ×2 (08:35→20:22)
[2017-12-05] MEDS: NYSTATIN POWDER 15 GM BOTTLE TOP SCH ×2 (08:35→20:22)
[2017-12-05] MEDS: MEROPENEM 500 MG in IV NORMAL SALINE 50 ML IV SCH ×2 (08:35→20:20)
[2017-12-05] MEDS: SODIUM HYPOCHLORITE 0.125% 473 ML BOTTLE TP SCH (08:36)
[2017-12-05 11:24] VITALS: BP 92/51
[2017-12-05] MEDS ORDERED: DEXTROSE 50% 50 ML DISP.SYRIN IV PRN (12:45)
[2017-12-05] MEDS ORDERED: POTASSIUM CHLORIDE 10 MEQ TAB.PRT.SR PO ONE (13:45)
[2017-12-05] MEDS ORDERED: POTASSIUM CHLORIDE 20 MEQ POWDER PACKET PO ONE (14:00)
[2017-12-05 16:47] VITALS: BP 94/62
[2017-12-05 19:00] VITALS: BP 103/70
[2017-12-06 04:00] VITALS: BP 104/64
[2017-12-06] MEDS: PANTOPRAZOLE SODIUM 40 MG TABLET.DR PO SCH (06:07)
[2017-12-06] MEDS: BLOOD SUGAR DIAGNOSTIC 1 EACH STRIP VI SCH (06:07)
[2017-12-06 06:44] LABS: CARBON DIOXIDE 30 mmol/L (21-32); CHLORIDE 112 mmol/L (98-107); CREATININE 1.7 mg/dL (0.6-1.3); GLUCOSE 66 mg/dL (74-106); POTASSIUM 3.9 mmol/L (3.5-5.1); UREA NITROGEN, BLOOD 72 mg/dL (7-18)
[2017-12-06 07:20] LABS: BASOPHILS % (AUTO) 0.3 % (0.0-2.0); EOSINOPHILS # (AUTO) 0.1 K/uL (0.0-0.7); EOSINOPHILS % (AUTO) 1.6 % (0.0-7.0); HEMATOCRIT 41.5 % (36.7-47.1); HEMOGLOBIN 13.4 g/dL (12.5-16.3); LYMPHOCYTES # (AUTO) 0.4 K/uL (20.0-40.0); LYMPHOCYTES % (AUTO) 5.6 % (20.5-51.5); MEAN CORPUSCULAR HEMOGLOBIN 27.6 uug (23.8-33.4); MEAN CORPUSCULAR HGB CONC 32 g/dL (32.5-36.3); MEAN CORPUSCULAR VOLUME 85.6 fL (73.0-96.2); MONOCYTES # (AUTO) 0.9 K/uL (2.0-10.0); NEUTROPHILS # (AUTO) 5.7 K/uL (1.8-8.9); NEUTROPHILS % (AUTO) 79.5 % (38.5-71.5); PLATELET COUNT (AUTO) 122 K/uL (152-348); RED BLOOD CELL COUNT(AUTO) 4.85 MIL/uL (4.06-5.63); WHITE BLOOD COUNT (AUTO) 7.1 K/uL (3.6-10.2)
[2017-12-06] MEDS: MEROPENEM 500 MG in IV NORMAL SALINE 50 ML IV SCH ×2 (08:46→20:49)
[2017-12-06] MEDS: NYSTATIN POWDER 15 GM BOTTLE TOP SCH ×2 (08:47→20:49)
[2017-12-06] MEDS: SODIUM HYPOCHLORITE 0.125% 473 ML BOTTLE TP SCH (08:48)
[2017-12-06] MEDS: Z GUARD REMEDY PASTE 57 GM TUBE TOP SCH ×2 (08:48→20:49)
[2017-12-06 11:05] VITALS: BP 100/50
[2017-12-06] MEDS ORDERED: LIDOCAINE 1%-EPI 1:100,000 20 ML VIAL TP ONE (15:00)
[2017-12-06] MEDS ORDERED: ALBUMIN HUMAN 25% 50 ML IV ONE (15:00)
[2017-12-06 15:29] VITALS: BP 102/56
[2017-12-07 04:32] VITALS: BP 99/56
[2017-12-07] MEDS: PANTOPRAZOLE SODIUM 40 MG TABLET.DR PO SCH (06:17)
[2017-12-07] MEDS: BLOOD SUGAR DIAGNOSTIC 1 EACH STRIP VI SCH (06:42)
[2017-12-07 06:55] LABS: CARBON DIOXIDE 31 mmol/L (21-32); CHLORIDE 113 mmol/L (98-107); CREATININE 1.8 mg/dL (0.6-1.3); GLUCOSE 91 mg/dL (74-106)
[2017-12-07 07:19] LABS: UREA NITROGEN, BLOOD 80 mg/dL (7-18)
[2017-12-07 07:23] LABS: BASOPHILS % (AUTO) 0.2 % (0.0-2.0); EOSINOPHILS # (AUTO) 0.1 K/uL (0.0-0.7); EOSINOPHILS % (AUTO) 1.9 % (0.0-7.0); HEMATOCRIT 38.2 % (36.7-47.1); HEMOGLOBIN 12.4 g/dL (12.5-16.3); LYMPHOCYTES # (AUTO) 0.3 K/uL (20.0-40.0); LYMPHOCYTES % (AUTO) 5.3 % (20.5-51.5); MEAN CORPUSCULAR HGB CONC 32 g/dL (32.5-36.3); MEAN CORPUSCULAR VOLUME 83.3 fL (73.0-96.2); MONOCYTES % (AUTO) 17.3 % (0.0-11.0); NEUTROPHILS # (AUTO) 4.4 K/uL (1.8-8.9); NEUTROPHILS % (AUTO) 75.3 % (38.5-71.5); PLATELET COUNT (AUTO) 120 K/uL (152-348); RED BLOOD CELL COUNT(AUTO) 4.58 MIL/uL (4.06-5.63); WHITE BLOOD COUNT (AUTO) 5.8 K/uL (3.6-10.2)
[2017-12-07] MEDS ORDERED: VANCOMYCIN IV 1 G in PREMIXED 0 EACH IV ONE (08:00)
[2017-12-07] MEDS: SODIUM HYPOCHLORITE 0.125% 473 ML BOTTLE TP SCH (09:22)
[2017-12-07] MEDS: MEROPENEM 500 MG in IV NORMAL SALINE 50 ML IV SCH (09:22)
[2017-12-07] MEDS: Z GUARD REMEDY PASTE 57 GM TUBE TOP SCH (09:24)
[2017-12-07] MEDS: NYSTATIN POWDER 15 GM BOTTLE TOP SCH (09:24)
[2017-12-07 11:12] LABS: BAND % (MANUAL) 2 % (0-10); LYMPHOCYTES % (MANUAL) 6 % (20-40); MONOCYTES % (MANUAL) 10 % (2-10); NEUTROPHILS % (MANUAL) 82 % (42-75)
[2017-12-07 12:00] VITALS: BP 91/65
[2017-12-07] MEDS ORDERED: MENT71OI TOP (14:34)
[2017-12-07] MEDS ORDERED: MERO500V IV (14:34)
[2017-12-07] MEDS ORDERED: RXVAN XX (14:34)
[2017-12-07] MEDS ORDERED: HYDR-3326 PO (14:34)
[2017-12-07] MEDS ORDERED: SODI473S8 TP (14:34)
[2017-12-07] MEDS ORDERED: BISA10SU61 RC (14:34)
[2017-12-07] MEDS ORDERED: ALBU2.5V7 NEB (14:34)
[2017-12-07] MEDS ORDERED: NYST15PO4 TOP (14:34)
[2017-12-07 15:51] VITALS: BP 101/49
== END 2017-12-07 16:00 | DRG 853 ==
LOC: ER 16:40 → TELE 21:19 → MED 11-30 18:26
PROVIDERS: ADMIT Internal Medicine; ATTEND Internal Medicine
PROC: 0W9G3ZX Drainage of Peritoneal Cavity, Percutaneous Approach, Diagnostic (ICD-10-PCS; 2017-11-27)
PROC: 0JB70ZZ Excision of Back Subcutaneous Tissue and Fascia, Open Approach (ICD-10-PCS; principal; 2017-11-28)
PROC: 0W9G3ZZ Drainage of Peritoneal Cavity, Percutaneous Approach (ICD-10-PCS; 2017-12-06)
DX: A41.9 Sepsis, unspecified organism (principal); L89.313 Pressure ulcer of right buttock, stage 3; L89.153 Pressure ulcer of sacral region, stage 3; J69.0 Pneumonitis due to inhalation of food and vomit; E43 Unspecified severe protein-calorie malnutrition; I50.23 Acute on chronic systolic (congestive) heart failure; N17.0 Acute kidney failure with tubular necrosis; I21.A1 Myocardial infarction type 2; G92 Toxic encephalopathy; R18.8 Other ascites; I13.0 Hypertensive heart and chronic kidney disease with heart failure and stage 1 through stage 4 chronic kidney disease, or unspecified chronic kidney disease; L03.116 Cellulitis of left lower limb; K76.6 Portal hypertension; D68.59 Other primary thrombophilia; J98.11 Atelectasis; Z68.23 Body mass index [BMI] 23.0-23.9, adult; L98.9 Disorder of the skin and subcutaneous tissue, unspecified; I08.3 Combined rheumatic disorders of mitral, aortic and tricuspid valves; L30.4 Erythema intertrigo; K74.60 Unspecified cirrhosis of liver; J01.30 Acute sphenoidal sinusitis, unspecified; J32.0 Chronic maxillary sinusitis; R62.7 Adult failure to thrive; E11.22 Type 2 diabetes mellitus with diabetic chronic kidney disease; N18.9 Chronic kidney disease, unspecified; Z86.73 Personal history of transient ischemic attack (TIA), and cerebral infarction without residual deficits; I25.5 Ischemic cardiomyopathy; I25.10 Atherosclerotic heart disease of native coronary artery without angina pectoris; Z95.1 Presence of aortocoronary bypass graft; E11.51 Type 2 diabetes mellitus with diabetic peripheral angiopathy without gangrene; Z95.818 Presence of other cardiac implants and grafts; Z79.84 Long term (current) use of oral hypoglycemic drugs; Z79.82 Long term (current) use of aspirin; I48.2 Chronic atrial fibrillation; F01.50 Vascular dementia, unspecified severity, without behavioral disturbance, psychotic disturbance, mood disturbance, and anxiety; Z86.19 Personal history of other infectious and parasitic diseases; R29.6 Repeated falls; K21.9 Gastro-esophageal reflux disease without esophagitis; Z79.899 Other long term (current) drug therapy; E78.5 Hyperlipidemia, unspecified; D63.8 Anemia in other chronic diseases classified elsewhere; D69.59 Other secondary thrombocytopenia; E11.649 Type 2 diabetes mellitus with hypoglycemia without coma; K57.30 Diverticulosis of large intestine without perforation or abscess without bleeding; M19.90 Unspecified osteoarthritis, unspecified site
CPT/HCPCS: 36415; 70030-TC; 70450; 71045; 83605; 83690; 83735; 84100; 84443; 85025; 85610; 85730; 87040; 87070; 87086; 87205; 92610; 93005; 93307; A4663; C1758; C9113; J0692; J1940; J2185; J2270; J2543; J3370; J3480; J3490; J7030; J7040; J7042; J7060; J7070; P9047